=== PATIENT | female | born 1945 | race Caucasian/White ===

== ENCOUNTER 2020-03-23 11:58 | Outpatient (REF) | payer OTHER, SELFPAY ==
[2020-03-23 13:39] LABS: MANUAL DIFF FLAG NO
[2020-03-23 13:43] LABS: Basophils Absolute Auto 0.1 X10*3/uL (0.0-0.2); Basophils Percent Auto 0.7 % (0-2); Eosinophils Absolute Auto 0.2 X10*3/uL (0.0-0.4); Eosinophils Percent Auto 3.4 % (0-4); Hematocrit 44.1 % (37-47); Hemoglobin 15.3 g/dl (12.0-16.0); Imm Gran Abs Auto 0.02 X10*3/uL (0.00-0.03); Imm Gran Pct Auto 0.3 % (0.0-0.4); Lymphocytes Percent Auto 28.1 % (20-40); Mean Corpuscular HGB Conc 34.7 g/dl (31.0-35.0); Mean Corpuscular Volume 92.3 fL (80-98); Mean Platelet Volume 10.2 fL (9.4-12.3); Monocytes Absolute Auto 0.6 X10*3/uL (0.1-1.2); Monocytes Percent Auto 8.7 % (2-11); Neutrophils Absolute Auto 4.1 X10*3/uL (2.0-8.3); Neutrophils Percent Auto 58.8 % (45-73); Platelet Count 259 X10*3/uL (160-400); Red Blood Count 4.78 X10*6/uL (4.20-5.50); Red Cell Distribution Width 12.4 % (11.0-16.0)
[2020-03-23 14:07] LABS: Alanine Aminotransferase 13 U/L (0-31); Albumin Level 4.4 g/dL (3.5-5.0); Alkaline Phosphatase 92 U/L (39-117); Anion Gap 17 (12-20); Aspartate Amino Transferase 38 U/L (5-31); Bilirubin Total 1.1 mg/dL (0.0-1.0); Blood Urea Nitrogen 20 mg/dL (9-16); Calcium 9.4 mg/dL (8.4-10.2); Carbon Dioxide 27 mmol/L (22-29); Chloride 103 mmol/L (96-108); Cholesterol 158 mg/dL; Estimated Glomerular Filt Rate 42; Glucose Fasting 116 mg/dL (60-99); HDL Cholesterol 41 mg/dL; LDL Cholesterol Calculated 77 mg/dl; Sodium 143 mmol/L (135-145); Total Protein 7.6 g/dL (6.5-8.0); Triglycerides 201 mg/dL
[2020-03-23 15:10] LABS: Estimated Average Glucose 180 mg/dL; Hemoglobin A1c % 7.9 %
== END 2020-03-23 11:59 | disposition home or self-care (01) ==
LOC: HO.10HDL 11:58
PROVIDERS: Visit Provider Internal Medicine
DX: E11.9 Type 2 diabetes mellitus without complications (principal)
CPT/HCPCS: 36415; 80053; 80061; 83036; 85025

== ENCOUNTER 2020-10-30 17:18 | Outpatient (REF) | payer OTHER, SELFPAY ==
[2020-10-30 18:03] LABS: MANUAL DIFF FLAG NO
[2020-10-30 18:26] LABS: Blood Urea Nitrogen 26 mg/dL (9-16); Estimated Glomerular Filt Rate 38
[2020-10-30 18:29] LABS: Uric Acid 9.6 mg/dL (2.4-5.7)
[2020-10-30 18:30] LABS: Basophils Absolute Auto 0.1 X10*3/uL (0.0-0.2); Basophils Percent Auto 0.5 % (0-2); Eosinophils Absolute Auto 0.2 X10*3/uL (0.0-0.4); Eosinophils Percent Auto 2.6 % (0-4); Hematocrit 44.4 % (37-47); Hemoglobin 15.4 g/dl (12.0-16.0); Imm Gran Abs Auto 0.04 X10*3/uL (0.00-0.03); Imm Gran Pct Auto 0.4 % (0.0-0.4); Lymphocytes Absolute Auto 2.2 X10*3/uL (1.2-4.9); Mean Corpuscular HGB Conc 34.7 g/dl (31.0-35.0); Mean Corpuscular Hemoglobin 32.1 pg (27.0-33.0); Mean Corpuscular Volume 92.5 fL (80-98); Mean Platelet Volume 11.4 fL (9.4-12.3); Monocytes Absolute Auto 0.7 X10*3/uL (0.1-1.2); Monocytes Percent Auto 7.4 % (2-11); Neutrophils Percent Auto 65.1 % (45-73); Platelet Count 185 X10*3/uL (160-400); Red Cell Distribution Width 12.6 % (11.0-16.0); White Blood Count 9.2 X10*3/uL (4.8-10.8)
[2020-10-30 18:59] LABS: Erythrocyte Sedimentation Rate 18 MM/HR (0-20)
== END 2020-10-30 17:19 | disposition home or self-care (01) ==
LOC: HO.LAB 17:18
PROVIDERS: PCP Internal Medicine; Visit Provider Podiatrist
DX: M79.672 Pain in left foot (principal); M10.072 Idiopathic gout, left ankle and foot; L03.032 Cellulitis of left toe; R60.0 Localized edema
CPT/HCPCS: 36415; 82565; 84520; 84550; 85025; 85652

== ENCOUNTER 2021-01-28 11:09 | Outpatient (REF) | payer OTHER, SELFPAY ==
[2021-01-28 14:04] LABS: Alanine Aminotransferase 29 U/L (0-31); Albumin Level 4.4 g/dL (3.5-5.0); Alkaline Phosphatase 103 U/L (39-117); Anion Gap 14 (12-20); Aspartate Amino Transferase 43 U/L (5-31); Bilirubin Direct 0.4 mg/dL (0.0-0.5); Bilirubin Total 1.1 mg/dL (0.0-1.0); Blood Urea Nitrogen 13 mg/dL (9-16); Calcium 10.1 mg/dL (8.4-10.2); Carbon Dioxide 26 mmol/L (22-29); Chloride 105 mmol/L (96-108); Cholesterol 195 mg/dL; Estimated Glomerular Filt Rate 44; Glucose Random 164 mg/dL (60-115); HDL Cholesterol 44 mg/dL; LDL Cholesterol Calculated 112 mg/dl; Potassium 4.2 mmol/L (3.3-5.1); Sodium 141 mmol/L (135-145); Total Protein 7.8 g/dL (6.5-8.0); Triglycerides 196 mg/dL
[2021-01-28 14:25] LABS: Thyroid Stimulating Hormone 1.76 uIU/mL (0.32-4.0)
== END 2021-01-28 11:10 | disposition home or self-care (01) ==
LOC: HO.10HDL 11:09
PROVIDERS: Visit Provider Internal Medicine
DX: E11.9 Type 2 diabetes mellitus without complications (principal)
CPT/HCPCS: 36415; 80048; 80061; 80076; 84443

== ENCOUNTER 2021-04-15 13:04 | Outpatient (REF) | payer OTHER, SELFPAY ==
--- NOTE | ~2021-04-15 | MM_ITS ---
EXAMINATION: MM SCREENING DIGITAL BREAST TOMOSYNTHESIS, BILATERAL CLINICAL INFORMATION: Screening. Asymptomatic. The lifetime risk of breast cancer based on the Tyrer-Cuzick Model is 3.6%. COMPARISON: Mammography: May 28, 2019 and studies dating back to August 12, 2013 TECHNIQUE: Digital breast tomosynthesis is performed in both the craniocaudal and mediolateral oblique views along with computer-aided detection (CAD). Synthesized 2D images are generated from the tomosynthesis. Additional right exaggerated craniocaudal view performed. FINDINGS: There are scattered areas of fibroglandular density (ACR BI-RADS breast composition Category b). There are no significant masses, abnormal calcifications, or other abnormalities. MM/MM tomosynthesis screening BI IMPRESSION: There are no significant changes from prior study. ASSESSMENT: BI-RADS 1: Negative RECOMMENDATION: Routine annual mammography screening. This patient's information was entered into a reminder system with a target due date for their next mammogram.
== END 2021-04-15 13:05 | disposition home or self-care (01) ==
LOC: HO.MAMMO 13:04
PROVIDERS: Visit Provider Internal Medicine
DX: Z12.31 Encounter for screening mammogram for malignant neoplasm of breast (principal)
CPT/HCPCS: 77063; 77067

== ENCOUNTER 2021-06-03 09:47 | Outpatient (REF) | payer OTHER, SELFPAY ==
[2021-06-03 11:06] LABS: Hematocrit 49.2 % (37.0-47.0); Hemoglobin 16.8 g/dl (12.0-16.0); Mean Corpuscular HGB Conc 34.1 g/dl (31.0-35.0); Mean Corpuscular Hemoglobin 30.9 pg (27.0-33.0); Mean Corpuscular Volume 90.6 fL (80.0-98.0); Mean Platelet Volume 10.3 fL (9.4-12.3); Platelet Count 217 X10*3/uL (160-400); Red Blood Count 5.43 X10*6/uL (4.20-5.50); Red Cell Distribution Width 12.5 % (11.0-16.0); White Blood Count 6.3 X10*3/uL (4.8-10.8)
[2021-06-03 11:35] LABS: Appearance Urine HAZY; Color Urine YELLOW; Glucose Urine UA NEG (NEG); Leukocyte Esterase Urine NEG (NEG); Nitrite Urine NEG (NEG); PH 5.5 (5.0-8.0); Specific Gravity - Urine >= 1.030 (1.005-1.025); Urine Blood NEG (NEG); Urine Ketones NEG (NEG); Urine Protein NEG (NEG-TRACE)
[2021-06-03 11:41] LABS: Alanine Aminotransferase 54 U/L (0-31); Albumin Level 4.4 g/dL (3.5-5.0); Alkaline Phosphatase 99 U/L (39-117); Anion Gap 15 (12-20); Aspartate Amino Transferase 30 U/L (5-31); Bilirubin Direct 0.4 mg/dL (0.0-0.5); Bilirubin Total 1.5 mg/dL (0.0-1.0); Blood Urea Nitrogen 19 mg/dL (9-16); Calcium 10.1 mg/dL (8.4-10.2); Carbon Dioxide 26 mmol/L (22-29); Chloride 102 mmol/L (96-108); Cholesterol 205 mg/dL; Estimated Glomerular Filt Rate 43; Glucose Random 164 mg/dL (60-115); HDL Cholesterol 44 mg/dL; LDL Cholesterol Calculated 120 mg/dl; Potassium 4.1 mmol/L (3.3-5.1); Sodium 139 mmol/L (135-145); Total Protein 7.8 g/dL (6.5-8.0); Triglycerides 207 mg/dL
[2021-06-03 11:53] LABS: Thyroid Stimulating Hormone 2.43 uIU/mL (0.32-4.0)
[2021-06-03 12:08] LABS: Creatinine Urine 153.61 mg/dL; Microalbum/Creatinine Ratio Ur 7.8 ug/mg cr
== END 2021-06-03 09:48 | disposition home or self-care (01) ==
LOC: HO.10HDL 09:47
PROVIDERS: Visit Provider Internal Medicine
DX: G20 Parkinson's disease (principal); I10 Essential (primary) hypertension
CPT/HCPCS: 36415; 80048; 80061; 80076; 81003; 82043; 84443; 85027

== ENCOUNTER 2021-06-22 11:40 | Inpatient (IN) | payer OTHER, SELFPAY ==
[2021-06-22] VITALS (8 sets, daily range): BP systolic 139–163; BP diastolic 84–111; PULSE 74–104; RESP 17–18; TEMP 36.4–36.7; O2SAT 96–100; BMI 26.5
--- NOTE | ~2021-06-22 | XR_ITS ---
EXAMINATION: XR CHEST CLINICAL INFORMATION: Lightheaded. COMPARISON: None TECHNIQUE: Frontal portable view of the chest was obtained. 4:23 PM FINDINGS: No significant abnormality is noted involving the heart, lungs, mediastinum, bony thorax or soft tissues. XR/XR chest 1V IMPRESSION: Unremarkable examination.
--- NOTE | ~2021-06-22 | NM_ITS ---
Myocardial perfusion study Indication: Elevated troponins to evaluate for myocardial ischemia Technique: The patient was brought in for a Lexiscan perfusion study on 06/24/2021. Patient performed low-level exercise and was injected 0.4 mg of Lexiscan intravenously. Within a minute of injection, 25 mCi of sestamibi was given intravenously. Images were obtained using the SPECT gamma camera interlaced with the gating device. Images were obtained in supine position. Resting perfusion study was performed on 06/23/2021. Patient was administered 25 mCi of sestamibi intravenously at rest. Images were then obtained in supine position. Images obtained with and without CT attenuation. Total DLP 124 mGy-cm. Images were processed with the software and compared side to side in short axis, horizontal long axis and vertical long axis views. Findings: The stress perfusion study showed non attenuated images show normal uptake of radiotracer in all segments of LV myocardium. Attenuation corrected images show mildly reduced uptake in the apex of the LV myocardium. The gated study shows mildly reduced LV systolic function with calculated LVEF of 46%. LV cavity is normal size. The gated study shows normal systolic wall thickening and contraction of segments. Resting study shows non attenuated images show mildly reduced uptake in the apex of the LV myocardium. Attenuation corrected images show moderately reduced uptake in the apex of the LV myocardium. Gating at rest reveals normal systolic wall motion with ejection fraction at 51%. The findings are consistent with no reversible defect suggestive of ischemia.. NM/NM samia perf SPECT rest & str Impression: 1. Myocardial perfusion imaging study shows likely normal myocardial perfusion 2. Gated LVEF is 46% with stress and 51% with rest 3. Transient ischemic dilatation not present EKG is nondiagnostic for ischemia
[2021-06-22 12:13] LABS: MANUAL DIFF FLAG NO
[2021-06-22 12:14] LABS: Basophils Absolute Auto 0.1 X10*3/uL (0.0-0.2); Basophils Percent Auto 0.7 % (0-2); Eosinophils Absolute Auto 0.2 X10*3/uL (0.0-0.4); Eosinophils Percent Auto 2.8 % (0-4); Hematocrit 50.1 % (37.0-47.0); Hemoglobin 17.3 g/dl (12.0-16.0); Imm Gran Abs Auto 0.03 X10*3/uL (0.00-0.03); Imm Gran Pct Auto 0.4 % (0.0-0.4); Lymphocytes Absolute Auto 1.8 X10*3/uL (1.2-4.9); Lymphocytes Percent Auto 25.5 % (20-40); Mean Corpuscular HGB Conc 34.5 g/dl (31.0-35.0); Mean Corpuscular Hemoglobin 30.7 pg (27.0-33.0); Mean Corpuscular Volume 88.8 fL (80.0-98.0); Mean Platelet Volume 9.8 fL (9.4-12.3); Monocytes Absolute Auto 0.6 X10*3/uL (0.1-1.2); Monocytes Percent Auto 8.7 % (2-11); Neutrophils Absolute Auto 4.5 x10*3/uL (2.0-8.3); Neutrophils Percent Auto 61.9 % (45-73); Platelet Count 241 X10*3/uL (160-400); Red Blood Count 5.64 X10*6/uL (4.20-5.50); Red Cell Distribution Width 12.4 % (11.0-16.0); White Blood Count 7.2 X10*3/uL (4.8-10.8)
[2021-06-22 12:34] LABS: Anion Gap 16 (12-20); Blood Urea Nitrogen 25 mg/dL (9-16); Calcium 10.5 mg/dL (8.4-10.2); Carbon Dioxide 21 mmol/L (22-29); Chloride 104 mmol/L (96-108); Creatinine Clr Calc Pharmacy 33.6; Estimated Glomerular Filt Rate 38; Glucose Random 286 mg/dL (60-115); Potassium 4.3 mmol/L (3.3-5.1); Sodium 137 mmol/L (135-145)
--- NOTE | 2021-06-22 14:22 | ECG_ITS ---
Test Reason : WEAKNESS Blood Pressure : / mmHG Vent. Rate : 092 BPM Atrial Rate : 092 BPM P-R Int : 182 ms QRS Dur : 076 ms QT Int : 360 ms P-R-T Axes : 070 -18 028 degrees QTc Int : 445 ms Baseline artifact Normal sinus rhythm Minimal voltage criteria for LVH, may be normal variant ( R in aVL ) Borderline ECG When compared with ECG of 02-AUG-2001 16:39, Vent. rate has increased BY 35 BPM Referred By: Margarette Ling Electronically Signed By:ODALIS BRIAN
--- NOTE | 2021-06-22 14:31 | ED_ITS ---
HPI - Weakness General Chief complaint: Weakness <JENNIFER Allen Last Filed: 06/22/21 18:04> Stated complaint: dizziness <JENNIFER Allen Last Filed: 06/22/21 18:04> Time Seen by Provider: 06/22/21 14:13 <JENNIFER Allen Last Filed: 06/22/21 18:04> Source: patient <JENNIFER Allen Last Filed: 06/22/21 18:04> Mode of arrival: ambulatory <JENNIFER Allen Last Filed: 06/22/21 18:04> History of Present Illness HPI Narrative: 76-year-old female with a past medical history of DM, HTN, HLD, Parkinson's, SVT, presenting to the ED from physical therapy complaining of lightheadedness and generalized weakness this morning, resolved at present. Reports symptoms were brief. States at physical therapy heart rate was in the 200s. Denies CP, SOB, headache, vision changes, nausea, vomiting, abdominal pain, decreased p.o. intake, recent illness, cough <JENNIFER Allen Last Filed: 06/22/21 18:04> MD Complaint: generalized weakness <JENNIFER Allen Last Filed: 06/22/21 18:04> Onset (ago): minute(s) <JENNIFER Allen Last Filed: 06/22/21 18:04> Duration: improved <JENNIFER Allen Last Filed: 06/22/21 18:04> Related Data Home medications: Home Medications Medication Instructions Recorded Confirmed aspirin 81 mg tablet,delayed 81 mg PO DAILY 01/28/21 release (Adult Low Dose Aspirin) atenolol 25 mg tablet 25 mg PO DAILY 01/28/21 carbidopa 25 mg-levodopa 100 mg 1 tab PO QID tab 01/28/21 tablet Previous Rx's Medication Instructions Recorded hydrochlorothiazide 12.5 mg tablet 12.5 mg PO DAILY #90 tab 11/19/20 atorvastatin 20 mg tablet 20 mg PO DAILY #90 tab 11/26/20 lisinopril 10 mg tablet 10 mg PO DAILY #90 tab 12/25/20 metformin 500 mg tablet 500 mg PO BID #180 tab 12/29/20 <JENNIFER Allen Last Filed: 06/22/21 18:04> Allergies/Adverse reactions: Allergies Allergy/AdvReac Type Severity Reaction Status Date / Time No Known Allergies Allergy Verified 06/03/21 09:20 <JENNIFER Allen - Last Filed: 06/22/21 18:04> Review of Systems Review of Systems: Constitutional: No Fever, No Chills, No Fatigue, No Malaise ENT/Mouth: No Ear Pain, No sore throat, No Rhinorrhea, No Swallowing Difficulty Eyes: No Eye Pain, No Redness, No Vision Changes Cardiovascular: No Chest Pain, No SOB, No Edema, No Palpitations Respiratory: No Cough, No Sputum, No Dyspnea Gastrointestinal: No Nausea, No Vomiting, No Diarrhea, No Constipation, No Abdominal pain Genitourinary: No Dysuria, No Urinary Frequency, No Hematuria, No Flank Pain, No Urinary Flow Changes Musculoskeletal: No joint pain, No Myalgias, No Joint Swelling Skin: No Skin Lesions, No rash Neuro: + Weakness, No Numbness, No Paresthesias, No Loss of Consciousness, No Dizziness, +lightheaded, No Headache <JENNIFER Allen - Last Filed: 06/22/21 18:04> Yes all other systems are reviewed and are negative <JENNIFER Allen Last Filed: 06/22/21 18:04> Neurologic: Denies Abnormal speech present <JENNIFER Allen - Last Filed: 06/22/21 18:04> FOR[facility]LY [facility] Past Medical History Attestation statement: The following information was validated with the patient. <JENNIFER Allen - Last Filed: 06/22/21 18:04> Medical History: Medical History Diabetes mellitus Essential hypertension Familial hypercholesterolemia Parkinsonism Supraventricular tachycardia <JENNIFER Allen Last Filed: 06/22/21 18:04> Surgical History: Surgical History History of appendectomy History of hemorrhoidectomy History of tumor <JENNIFER Allen Last Filed: 06/22/21 18:04> Family History Family History: Family History Father No problems noted. Mother No problems noted. <JENNIFER Allen - Last Filed: 06/22/21 18:04> Social History Social History: Social History Housing: House Alcohol intake: never Patient Tobacco Use Status: Never used Tobacco e-Cigarette/Vaping Use: Never Used Second Hand Smoke Exposure: No Advance Directives: No Advance Directives Information Provided: No service: No Current occupational status: retired Cognitive needs: No Hearing needs: No Vision needs: Yes (glasses) <JENNIFER Allen - Last Filed: 06/22/21 18:04> Physical Exam Vital Signs: Vital Signs: Last Vital Signs Temp 98.0 F 06/22/21 18:12 Pulse 83 06/22/21 18:12 Resp 18 06/22/21 18:12 BP 139/102 H 06/22/21 18:12 Pulse Ox 96 06/22/21 18:12 BMI result Body Mass Index 26.5 <JENNIFER Allen - Last Filed: 06/22/21 18:04> Vital Signs: Last Vital Signs Temp 98.0 F 06/22/21 18:12 Pulse 83 06/22/21 18:12 Resp 18 06/22/21 18:12 BP 139/102 H 06/22/21 18:12 Pulse Ox 96 06/22/21 18:12 BMI result Body Mass Index 26.5 <JENNIFER Garsia - Last Filed: 06/22/21 19:39> Const: General: cooperative and healthy appearing <JENNIFER Allen - Last Filed: 06/22/21 18:04> Orientation/consciousness: patient oriented x3 <JENNIFER Allen - Last Filed: 06/22/21 18:04> Limitations: no limitations <JENNIFER Allen - Last Filed: 06/22/21 18:04> HENMT: Head: Yes normal to inspection and Yes atraumatic <JENNIFER Allen - Last Filed: 06/22/21 18:04> Ears: hearing grossly normal bilaterally <JENNIFER Allen - Last Filed: 06/22/21 18:04> General nose exam: Normal external nose present <Margarette Ling PA - Last Filed: 06/22/21 18:04> Face and sinus: Yes normal facial exam <Margarette Ling PA - Last Filed: 06/22/21 18:04> Throat: Yes posterior oropharynx normal and Yes uvula midline <Margarette Ling PA - Last Filed: 06/22/21 18:04> Eyes: General: appearance normal, both eyes and all related structures <Margarette Ling PA - Last Filed: 06/22/21 18:04> Pupils: Equal, round and reactive pupils present <Margarette Ling PA - Last Filed: 06/22/21 18:04> EOM: EOMs intact bilaterally <Margarette Ling PA - Last Filed: 06/22/21 18:04> Neck: Neck: Yes normal visual inspection and Yes no meningeal signs <Margarette Lign PA - Last Filed: 06/22/21 18:04> Resp: Effort & Inspection: normal respiratory effort and no respiratory distress <Margarette Ling PA - Last Filed: 06/22/21 18:04> Auscultation: clear to auscultation bilaterally <Margarette Ling PA - Last Filed: 06/22/21 18:04> Cardio: Rate: regular rate <Margarette Ling PA - Last Filed: 06/22/21 18:04> Heart sounds: S1 normal heart sound present and S2 normal heart sound present <Margarette Ling PA - Last Filed: 06/22/21 18:04> GI: Inspection: Yes normal to inspection <Margarette Ling PA - Last Filed: 06/22/21 18:04> Palpation (GI): Soft to palpation, nontender, no guarding and not rigid <Margarette Ling PA - Last Filed: 06/22/21 18:04> : General: Yes no CVA tenderness <Margarette Ling PA - Last Filed: 06/22/21 18:04> Back/Spine/Pelvis: Back: no CVA tenderness <Margarette Ling PA - Last Filed: 06/22/21 18:04> Skin: Rashes: no rashes <Margarette Ling PA - Last Filed: 06/22/21 18:04> Wounds: no wounds <Margarette Ling PA - Last Filed: 06/22/21 18:04> Neuro: General: patient oriented x3, gait normal, tone normal, moves all extremities, no meningeal signs, no focal motor deficits and CN's II-XI intact bilaterally <Margarette Ling PA - Last Filed: 06/22/21 18:04> Cranial nerves: Yes Equal, round and reactive pupils present <Margarette Ling PA - Last Filed: 06/22/21 18:04> Cognition (Neuro): normal cognition <Margarette Ling PA - Last Filed: 06/22/21 18:04> Speech: No Abnormal speech present <Margarette Ling PA - Last Filed: 06/22/21 18:04> Gait exam (Neuro): Normal gait present <Margarette Ling PA - Last Filed: 06/22/21 18:04> Motor exam (neuro): 5/5 motor strength present throughout, Pronator motor function not present and Tremors during motor activity present <Margarette Ling PA - Last Filed: 06/22/21 18:04> Coordination: [id number] test normal <Margarette Ling PA - Last Filed: 06/22/21 18:04> Romberg Test: Negative <Margarette Ling PA - Last Filed: 06/22/21 18:04> Extrem: General: Yes normal to inspection, Yes no pedal edema and Yes no calf tenderness <Margarette Ling PA - Last Filed: 06/22/21 18:04> Course Course Course Narrative: -1544--no leukocytosis. BUN acute on chronically elevated to 25. Initial troponin 5.1 > will obtain 3 hour repeat. -lipase mildly elevated to 187. UA with 500 glucose/not infected -orthostatic vital signs negative -1634--troponin increased to 18.5 > will consult Cardiology -case discussed with Cardiology Dr. Carpio, will repeat 3rd troponin, if continues to rise will admit, if plateaus will discharge home with Cardiology follow-up -1800--ED care transferred to JENNIFER Reynolds pending repeat troponin. Dispo per results <JENNIFER Allen Last Filed: 06/22/21 18:04> -1544--no leukocytosis. BUN acute on chronically elevated to 25. Initial troponin 5.1 > will obtain 3 hour repeat. -lipase mildly elevated to 187. UA with 500 glucose/not infected -orthostatic vital signs negative -1634--troponin increased to 18.5 > will consult Cardiology -case discussed with Cardiology Dr. Carpio, will repeat 3rd troponin, if continues to rise will admit, if plateaus will discharge home with Cardiology follow-up -1800--ED care transferred to JENNIFER Reynolds pending repeat troponin. Dispo per results -1938 Patient's troponin continues to elevate. Spoke to Dr. Carpio, the shuttle inspector, who recommended the patient be brought in for observation. He stated that he did not want a heparin drip started until after he sees her in the morning. Spoke to hospitalist Dr. Bergman who agreed to admission. <JENNIFER Garsia - Last Filed: 06/22/21 19:39> MDM - Weakness MDM Narrative Medical decision making narrative: 76-year-old female with a past medical history of DM, HTN, HLD, Parkinson's, SVT, presenting to the ED from physical therapy complaining of lightheadedness and generalized weakness this morning, resolved at present. On exam hypertensive, tachycardic,, NAD, no focal neuro deficits. Concern for metabolic/infectious etiologies vs ?Episodic SVT. Low concern for ACS/PE/CVA. Low concern for hypertensive urgency/emergency Plan: EKG, Labs, UA, orthostatics, IVF, Reassess <JENNIFER Allen - Last Filed: 06/22/21 18:04> Differential Diagnosis Differential diagnosis: Likely UTI and dehydration <JENNIFER Allen Last Filed: 06/22/21 18:04> Medical Records Attestation: I reviewed the patient's medical records. <JENNIFER Allen Last Filed: 06/22/21 18:04> Lab Data Attestation: I reviewed the patient's lab results. <JENNIFER Allen Last Filed: 06/22/21 18:04> Result diagrams: : 06/22/21 12:07 06/22/21 12:07 <JENNIFER Allen - Last Filed: 06/22/21 18:04> Labs: Lab Results 06/22/21 06/22/21 06/22/21 Range/Units 12:07 12:07 12:07 WBC 7.2 (4.8-10.8) X10*3/uL RBC 5.64 H (4.20-5.50) X10*6/uL Hgb 17.3 H (12.0-16.0) g/dl Hct 50.1 H (37.0-47.0) % MCV 88.8 (80.0-98.0) fL MCH 30.7 (27.0-33.0) pg MCHC 34.5 (31.0-35.0) g/dl RDW 12.4 (11.0-16.0) % Plt Count 241 (160-400) X10*3/uL MPV 9.8 (9.4-12.3) fL Immature Gran % (Auto) 0.4 (0.0-0.4) % Neut % (Auto) 61.9 (45-73) % Lymph % (Auto) 25.5 (20-40) % [place] % (Auto) 8.7 (2-11) % Eos % (Auto) 2.8 (0-4) % Baso % (Auto) 0.7 (0-2) % Lymph # (Auto) 1.8 (1.2-4.9) X10*3/uL [place] # (Auto) 0.6 (0.1-1.2) X10*3/uL Eos # (Auto) 0.2 (0.0-0.4) X10*3/uL Baso # (Auto) 0.1 (0.0-0.2) X10*3/uL Abs Immat Gran (auto) 0.03 (0.00-0.03) X10*3/uL Absolute Neuts (auto) 4.5 (2.0-8.3) x10*3/uL Absolute Nucleated RBC 0.000 (0.0-0.012) X10*3/uL Nucleated RBC % (auto) 0.0 (0.0-0.2) /100WBC Sodium 137 (135-145) mmol/L Potassium 4.3 (3.3-5.1) mmol/L Chloride 104 (96-108) mmol/L Carbon Dioxide 21 L (22-29) mmol/L Anion Gap 16 (12-20) BUN 25 H (9-16) mg/dL Creatinine 1.36 (0.5-1.4) mg/dL Estim Creat Clear Calc 33.6 Estimated GFR 38 Random Glucose 286 H (60-115) mg/dL Calcium 10.5 H (8.4-10.2) mg/dL Magnesium 1.8 (1.6-2.6) mg/dL Total Bilirubin 0.8 (0.0-1.0) mg/dL Direct Bilirubin 0.3 (0.0-0.5) mg/dL AST 24 (5-31) U/L ALT 22 (0-31) U/L Alkaline Phosphatase 120 H D (39-117) U/L Troponin I High Sens 5.1 (<3.5-17.0) ng/L Total Protein 7.9 (6.5-8.0) g/dL Albumin 4.4 (3.5-5.0) g/dL Lipase 187 H (8-78) U/L Urine Color Urine Appearance Urine pH (5.0-8.0) Ur Specific [place] (1.005-1.025) Urine Protein (NEG-TRACE) MG/DL Urine Glucose (UA) (NEG) MG/DL Urine Ketones (NEG) MG/DL Urine Blood (NEG) Urine Nitrite (NEG) Ur Leukocyte Esterase (NEG) COVID-19 (OBDULIO) (Negative) COVID-19 Clin Com 06/22/21 06/22/21 06/22/21 Range/Units 14:42 14:42 15:58 WBC (4.8-10.8) X10*3/uL RBC (4.20-5.50) X10*6/uL Hgb (12.0-16.0) g/dl Hct (37.0-47.0) % MCV (80.0-98.0) fL MCH (27.0-33.0) pg MCHC (31.0-35.0) g/dl RDW (11.0-16.0) % Plt Count (160-400) X10*3/uL MPV (9.4-12.3) fL Immature Gran % (Auto) (0.0-0.4) % Neut % (Auto) (45-73) % Lymph % (Auto) (20-40) % [place] % (Auto) (2-11) % Eos % (Auto) (0-4) % Baso % (Auto) (0-2) % Lymph # (Auto) (1.2-4.9) X10*3/uL [place] # (Auto) (0.1-1.2) X10*3/uL Eos # (Auto) (0.0-0.4) X10*3/uL Baso # (Auto) (0.0-0.2) X10*3/uL Abs Immat Gran (auto) (0.00-0.03) X10*3/uL Absolute Neuts (auto) (2.0-8.3) x10*3/uL Absolute Nucleated RBC (0.0-0.012) X10*3/uL Nucleated RBC % (auto) (0.0-0.2) /100WBC Sodium (135-145) mmol/L Potassium (3.3-5.1) mmol/L Chloride (96-108) mmol/L Carbon Dioxide (22-29) mmol/L Anion Gap (12-20) BUN (9-16) mg/dL Creatinine (0.5-1.4) mg/dL Estim Creat Clear Calc Estimated GFR Random Glucose (60-115) mg/dL Calcium (8.4-10.2) mg/dL Magnesium (1.6-2.6) mg/dL Total Bilirubin (0.0-1.0) mg/dL Direct Bilirubin (0.0-0.5) mg/dL AST (5-31) U/L ALT (0-31) U/L Alkaline Phosphatase (39-117) U/L Troponin I High Sens 18.5 H D (<3.5-17.0) ng/L Total Protein (6.5-8.0) g/dL Albumin (3.5-5.0) g/dL Lipase (8-78) U/L Urine Color YELLOW Urine Appearance CLEAR Urine pH 5.5 (5.0-8.0) Ur Specific [place] 1.025 (1.005-1.025) Urine Protein NEG (NEG-TRACE) MG/DL Urine Glucose (UA) 500 H (NEG) MG/DL Urine Ketones NEG (NEG) MG/DL Urine Blood NEG (NEG) Urine Nitrite NEG (NEG) Ur Leukocyte Esterase NEG (NEG) COVID-19 (OBDULIO) Negative (Negative) COVID-19 Clin Com See Note 06/22/21 Range/Units 18:08 WBC (4.8-10.8) X10*3/uL RBC (4.20-5.50) X10*6/uL Hgb (12.0-16.0) g/dl Hct (37.0-47.0) % MCV (80.0-98.0) fL MCH (27.0-33.0) pg MCHC (31.0-35.0) g/dl RDW (11.0-16.0) % Plt Count (160-400) X10*3/uL MPV (9.4-12.3) fL Immature Gran % (Auto) (0.0-0.4) % Neut % (Auto) (45-73) % Lymph % (Auto) (20-40) % [place] % (Auto) (2-11) % Eos % (Auto) (0-4) % Baso % (Auto) (0-2) % Lymph # (Auto) (1.2-4.9) X10*3/uL [place] # (Auto) (0.1-1.2) X10*3/uL Eos # (Auto) (0.0-0.4) X10*3/uL Baso # (Auto) (0.0-0.2) X10*3/uL Abs Immat Gran (auto) (0.00-0.03) X10*3/uL Absolute Neuts (auto) (2.0-8.3) x10*3/uL Absolute Nucleated RBC (0.0-0.012) X10*3/uL Nucleated RBC % (auto) (0.0-0.2) /100WBC Sodium (135-145) mmol/L Potassium (3.3-5.1) mmol/L Chloride (96-108) mmol/L Carbon Dioxide (22-29) mmol/L Anion Gap (12-20) BUN (9-16) mg/dL Creatinine (0.5-1.4) mg/dL Estim Creat Clear Calc Estimated GFR Random Glucose (60-115) mg/dL Calcium (8.4-10.2) mg/dL Magnesium (1.6-2.6) mg/dL Total Bilirubin (0.0-1.0) mg/dL Direct Bilirubin (0.0-0.5) mg/dL AST (5-31) U/L ALT (0-31) U/L Alkaline Phosphatase (39-117) U/L Troponin I High Sens 24.9 H (<3.5-17.0) ng/L Total Protein (6.5-8.0) g/dL Albumin (3.5-5.0) g/dL Lipase (8-78) U/L Urine Color Urine Appearance Urine pH (5.0-8.0) Ur Specific [place] (1.005-1.025) Urine Protein (NEG-TRACE) MG/DL Urine Glucose (UA) (NEG) MG/DL Urine Ketones (NEG) MG/DL Urine Blood (NEG) Urine Nitrite (NEG) Ur Leukocyte Esterase (NEG) COVID-19 (OBDULIO) (Negative) COVID-19 Clin Com <JENNIFER Allen - Last Filed: 06/22/21 18:04> Lab Results 06/22/21 06/22/21 06/22/21 Range/Units 12:07 12:07 12:07 WBC 7.2 (4.8-10.8) X10*3/uL RBC 5.64 H (4.20-5.50) X10*6/uL Hgb 17.3 H (12.0-16.0) g/dl Hct 50.1 H (37.0-47.0) % MCV 88.8 (80.0-98.0) fL MCH 30.7 (27.0-33.0) pg MCHC 34.5 (31.0-35.0) g/dl RDW 12.4 (11.0-16.0) % Plt Count 241 (160-400) X10*3/uL MPV 9.8 (9.4-12.3) fL Immature Gran % (Auto) 0.4 (0.0-0.4) % Neut % (Auto) 61.9 (45-73) % Lymph % (Auto) 25.5 (20-40) % [place] % (Auto) 8.7 (2-11) % Eos % (Auto) 2.8 (0-4) % Baso % (Auto) 0.7 (0-2) % Lymph # (Auto) 1.8 (1.2-4.9) X10*3/uL [place] # (Auto) 0.6 (0.1-1.2) X10*3/uL Eos # (Auto) 0.2 (0.0-0.4) X10*3/uL Baso # (Auto) 0.1 (0.0-0.2) X10*3/uL Abs Immat Gran (auto) 0.03 (0.00-0.03) X10*3/uL Absolute Neuts (auto) 4.5 (2.0-8.3) x10*3/uL Absolute Nucleated RBC 0.000 (0.0-0.012) X10*3/uL Nucleated RBC % (auto) 0.0 (0.0-0.2) /100WBC Sodium 137 (135-145) mmol/L Potassium 4.3 (3.3-5.1) mmol/L Chloride 104 (96-108) mmol/L Carbon Dioxide 21 L (22-29) mmol/L Anion Gap 16 (12-20) BUN 25 H (9-16) mg/dL Creatinine 1.36 (0.5-1.4) mg/dL Estim Creat Clear Calc 33.6 Estimated GFR 38 Random Glucose 286 H (60-115) mg/dL Calcium 10.5 H (8.4-10.2) mg/dL Magnesium 1.8 (1.6-2.6) mg/dL Total Bilirubin 0.8 (0.0-1.0) mg/dL Direct Bilirubin 0.3 (0.0-0.5) mg/dL AST 24 (5-31) U/L ALT 22 (0-31) U/L Alkaline Phosphatase 120 H D (39-117) U/L Troponin I High Sens 5.1 (<3.5-17.0) ng/L Total Protein 7.9 (6.5-8.0) g/dL Albumin 4.4 (3.5-5.0) g/dL Lipase 187 H (8-78) U/L Urine Color Urine Appearance Urine pH (5.0-8.0) Ur Specific [place] (1.005-1.025) Urine Protein (NEG-TRACE) MG/DL Urine Glucose (UA) (NEG) MG/DL Urine Ketones (NEG) MG/DL Urine Blood (NEG) Urine Nitrite (NEG) Ur Leukocyte Esterase (NEG) COVID-19 (OBDULIO) (Negative) COVID-19 Clin Com 06/22/21 06/22/21 06/22/21 Range/Units 14:42 14:42 15:58 WBC (4.8-10.8) X10*3/uL RBC (4.20-5.50) X10*6/uL Hgb (12.0-16.0) g/dl Hct (37.0-47.0) % MCV (80.0-98.0) fL MCH (27.0-33.0) pg MCHC (31.0-35.0) g/dl RDW (11.0-16.0) % Plt Count (160-400) X10*3/uL MPV (9.4-12.3) fL Immature Gran % (Auto) (0.0-0.4) % Neut % (Auto) (45-73) % Lymph % (Auto) (20-40) % [place] % (Auto) (2-11) % Eos % (Auto) (0-4) % Baso % (Auto) (0-2) % Lymph # (Auto) (1.2-4.9) X10*3/uL [place] # (Auto) (0.1-1.2) X10*3/uL Eos # (Auto) (0.0-0.4) X10*3/uL Baso # (Auto) (0.0-0.2) X10*3/uL Abs Immat Gran (auto) (0.00-0.03) X10*3/uL Absolute Neuts (auto) (2.0-8.3) x10*3/uL Absolute Nucleated RBC (0.0-0.012) X10*3/uL Nucleated RBC % (auto) (0.0-0.2) /100WBC Sodium (135-145) mmol/L Potassium (3.3-5.1) mmol/L Chloride (96-108) mmol/L Carbon Dioxide (22-29) mmol/L Anion Gap (12-20) BUN (9-16) mg/dL Creatinine (0.5-1.4) mg/dL Estim Creat Clear Calc Estimated GFR Random Glucose (60-115) mg/dL Calcium (8.4-10.2) mg/dL Magnesium (1.6-2.6) mg/dL Total Bilirubin (0.0-1.0) mg/dL Direct Bilirubin (0.0-0.5) mg/dL AST (5-31) U/L ALT (0-31) U/L Alkaline Phosphatase (39-117) U/L Troponin I High Sens 18.5 H D (<3.5-17.0) ng/L Total Protein (6.5-8.0) g/dL Albumin (3.5-5.0) g/dL Lipase (8-78) U/L Urine Color YELLOW Urine Appearance CLEAR Urine pH 5.5 (5.0-8.0) Ur Specific [place] 1.025 (1.005-1.025) Urine Protein NEG (NEG-TRACE) MG/DL Urine Glucose (UA) 500 H (NEG) MG/DL Urine Ketones NEG (NEG) MG/DL Urine Blood NEG (NEG) Urine Nitrite NEG (NEG) Ur Leukocyte Esterase NEG (NEG) COVID-19 (OBDULIO) Negative (Negative) COVID-19 Clin Com See Note 06/22/21 Range/Units 18:08 WBC (4.8-10.8) X10*3/uL RBC (4.20-5.50) X10*6/uL Hgb (12.0-16.0) g/dl Hct (37.0-47.0) % MCV (80.0-98.0) fL MCH (27.0-33.0) pg MCHC (31.0-35.0) g/dl RDW (11.0-16.0) % Plt Count (160-400) X10*3/uL MPV (9.4-12.3) fL Immature Gran % (Auto) (0.0-0.4) % Neut % (Auto) (45-73) % Lymph % (Auto) (20-40) % [place] % (Auto) (2-11) % Eos % (Auto) (0-4) % Baso % (Auto) (0-2) % Lymph # (Auto) (1.2-4.9) X10*3/uL [place] # (Auto) (0.1-1.2) X10*3/uL Eos # (Auto) (0.0-0.4) X10*3/uL Baso # (Auto) (0.0-0.2) X10*3/uL Abs Immat Gran (auto) (0.00-0.03) X10*3/uL Absolute Neuts (auto) (2.0-8.3) x10*3/uL Absolute Nucleated RBC (0.0-0.012) X10*3/uL Nucleated RBC % (auto) (0.0-0.2) /100WBC Sodium (135-145) mmol/L Potassium (3.3-5.1) mmol/L Chloride (96-108) mmol/L Carbon Dioxide (22-29) mmol/L Anion Gap (12-20) BUN (9-16) mg/dL Creatinine (0.5-1.4) mg/dL Estim Creat Clear Calc Estimated GFR Random Glucose (60-115) mg/dL Calcium (8.4-10.2) mg/dL Magnesium (1.6-2.6) mg/dL Total Bilirubin (0.0-1.0) mg/dL Direct Bilirubin (0.0-0.5) mg/dL AST (5-31) U/L ALT (0-31) U/L Alkaline Phosphatase (39-117) U/L Troponin I High Sens 24.9 H (<3.5-17.0) ng/L Total Protein (6.5-8.0) g/dL Albumin (3.5-5.0) g/dL Lipase (8-78) U/L Urine Color Urine Appearance Urine pH (5.0-8.0) Ur Specific [place] (1.005-1.025) Urine Protein (NEG-TRACE) MG/DL Urine Glucose (UA) (NEG) MG/DL Urine Ketones (NEG) MG/DL Urine Blood (NEG) Urine Nitrite (NEG) Ur Leukocyte Esterase (NEG) COVID-19 (OBDULIO) (Negative) COVID-19 Clin Com <JENNIFER Garsia - Last Filed: 06/22/21 19:39> Discharge Plan Discharge Clinical Impression: Episodic lightheadedness, Elevated troponin level <JENNIFER Allen - Last Filed: 06/22/21 18:04> Patient Disposition: Admitted As Inpatient <JENNIFER Allen - Last Filed: 06/22/21 18:04> Instructions: Lightheadedness (ED) <JENNIFER Allen - Last Filed: 06/22/21 18:04> Prescriptions: No Action hydrochlorothiazide 12.5 mg tablet 12.5 mg PO DAILY Qty: 90 1RF atorvastatin 20 mg tablet 20 mg PO DAILY Qty: 90 1RF lisinopril 10 mg tablet 10 mg PO DAILY Qty: 90 1RF metformin 500 mg tablet 500 mg PO BID Qty: 180 2RF carbidopa-levodopa 25-100 mg tablet 1 tab PO QID 0RF aspirin [Adult Low Dose Aspirin] 81 mg tablet,delayed release (DR/EC) 81 mg PO DAILY 0RF atenolol 25 mg tablet 25 mg PO DAILY 0RF <JENNIFER Allen - Last Filed: 06/22/21 18:04> Referrals: Holden Carpio MD [Physician] - 2 days <JENNIFER Allen - Last Filed: 06/22/21 18:04> Print Language: Mongolian <JENNIFER Allen - Last Filed: 06/22/21 18:04>
[2021-06-22 14:50] LABS: Alanine Aminotransferase 22 U/L (0-31); Albumin Level 4.4 g/dL (3.5-5.0); Alkaline Phosphatase 120 U/L (39-117); Aspartate Amino Transferase 24 U/L (5-31); Bilirubin Direct 0.3 mg/dL (0.0-0.5); Bilirubin Total 0.8 mg/dL (0.0-1.0); Lipase 187 U/L (8-78); Magnesium 1.8 mg/dL (1.6-2.6); Total Protein 7.9 g/dL (6.5-8.0)
[2021-06-22 14:51] LABS: Appearance Urine CLEAR; Color Urine YELLOW; Glucose Urine UA 500 MG/DL (NEG); Leukocyte Esterase Urine NEG (NEG); Nitrite Urine NEG (NEG); PH 5.5 (5.0-8.0); Specific Gravity - Urine 1.025 (1.005-1.025); Urine Blood NEG (NEG); Urine Ketones NEG (NEG); Urine Protein NEG (NEG-TRACE)
[2021-06-22 14:57] LABS: Troponin-I High Sensitivity 5.1 ng/L (<3.5-17.0)
[2021-06-22] MEDS: 0.9 % Sodium Chloride 1,000 ML 999 ML IV (15:06)
[2021-06-22 16:26] LABS: Troponin-I High Sensitivity 18.5 ng/L (<3.5-17.0)
--- NOTE | 2021-06-22 17:25 | PC.NURSE ---
second bag of ivf not given, due to iv infiltrate, provier aware
[2021-06-22 18:32] LABS: COVID-19 Test Negative (Negative); IDNOW Serial# 16C4AD1C
[2021-06-22 18:41] LABS: Troponin-I High Sensitivity 24.9 ng/L (<3.5-17.0)
[2021-06-22 20:03] LABS: Glucose, Whole Blood 137 mg/dL (60-115)
--- NOTE | 2021-06-22 20:39 | PHA.MEDREC ---
Pharmacy Consult ? Medication Reconciliation Pharmacy has completed the medication reconciliation.Pt unsure if she still takes atenolol
[2021-06-22 22:39] LABS: Glucose, Whole Blood 225 mg/dL (60-115)
[2021-06-22] MEDS: Insulin Lispro 100 UNIT/ML 3 ML VIAL SUBCUT (22:49)
[2021-06-22] MEDS: Enoxaparin Sodium 40 MG/0.4 ML SYRINGE 70 MG SUBCUT (22:50)
--- NOTE | 2021-06-22 23:47 | PM.IMHP ---
History of Present Illness Date of Service: 06/22/21 Chief Complaint: Dizziness 76-year-old female with a past medical history of hypertension, familial hypercholesterolemia, diabetes, history of supraventricular tachycardia, parkinsonism; presented to the hospital today with a chief complaint of dizziness. Patient reported that he was starting for protein feels like the. The [facility] at home and had dizziness briefly; all she came to the hospital for physical therapy she mentioned that she was not feeling right and the followed by she felt dizzy and when sitting vitals he noted to have heart rate in low 100s; denied any palpitations. Denies any chest pain. Denies any fever chills cough. Mentions dizziness was with episode. Denies any dizziness at the time of my interview. Denies any urinary symptoms. Review of all other systems is negative except mentioned above ER course: Per ER team patient heart rate improved; further bleeding low 100s; exam benign; CT head showed no acute findings; troponins 5.1, 18.5, 24.9. EKG was nonischemic. Discussed with Dr. Carpio from cardiology who recommended Lovenox for possible NSTEMI. Also suggested echocardiogram. Admitted to the hospital for further management [facility] Medical History Diabetes mellitus Essential hypertension Familial hypercholesterolemia Parkinsonism Supraventricular tachycardia Family History Father No problems noted. Mother No problems noted. Surgical History History of appendectomy History of hemorrhoidectomy History of tumor Social History Housing: House Alcohol intake: never Patient Tobacco Use Status: Never used Tobacco e-Cigarette/Vaping Use: Never Used Second Hand Smoke Exposure: No Advance Directives: No Advance Directives Information Provided: No service: No Current occupational status: retired Cognitive needs: No Hearing needs: No Vision needs: Yes (glasses) Meds Allergies Allergy/AdvReac Type Severity Reaction Status Date / Time No Known Allergies Allergy Verified 06/03/21 09:20 Active Medications: Current Medications Dextrose (Dextrose 50 % 25 Gm/50 Ml Vial) 25 gm IVPUSH Q15M PRN; Protocol PRN Reason: per Hypoglycemia Standing Ord. Enoxaparin Sodium (Enoxaparin Sodium 40 Mg/0.4 Ml Syringe) 70 mg SUBCUT Q12H [facility] Last Admin: 06/22/21 22:50 Dose: 70 mg Documented by: Glucose (Glucose Gel 15 Gm Gel..Gram.) 15 gm PO Q15M PRN; Protocol PRN Reason: per Hypoglycemia Standing Ord. Insulin Human Lispro (Insulin Lispro 100 Unit/Ml 3 Ml Vial) 0 unit SUBCUT QIDACHS [facility]; Protocol Last Admin: 06/22/21 22:49 Dose: 4 unit Documented by: Melatonin (Melatonin 3 Mg Tablet) 6 mg PO BEDTIME PRN PRN Reason: Insomnia Senna (Sennosides 8.6 Mg Tablet) 17.2 mg PO BEDTIME PRN PRN Reason: Constipation Sodium Chloride (0.9 % Sodium Chloride Flush 3 Ml Syringe) 3 ml IVFLUSH QSHIFT [facility] Home Medications Medication Instructions Recorded Confirmed Last Taken Type aspirin 81 mg tablet,delayed 81 mg PO DAILY PRN 01/28/21 06/22/21 Unknown History release (Adult Low Dose Aspirin) atenolol 25 mg tablet 25 mg PO DAILY 01/28/21 06/22/21 Unknown History carbidopa 25 mg-levodopa 100 mg 1 tab PO QID tab 01/28/21 06/22/21 06/22/21 History tablet metformin 500 mg tablet 500 mg PO BIDWM 06/22/21 06/22/21 06/22/21 History Physical Exam Vital Signs and Narrative: Vital Signs: Last Vital Signs Temp 98.1 F 06/22/21 23:33 Pulse 77 06/22/21 23:33 Resp 18 06/22/21 23:33 BP 154/91 H 06/22/21 23:33 Pulse Ox 96 06/22/21 23:33 BMI result Body Mass Index 26.5 Gen: Appears be in no acute distress HEENT: NCAT, Moist mucosa. Pulmonary: Vesicular breath sounds, fair air entry CVS: Normal S1-S2 Abdomen: BS+, Soft, Nontender Extremities: Warm well perfused Neuro: Alert and awake. tremors in upper extremity secondary to Parkinson disease Results Labs CBC and Chem 7: 06/22/21 12:07 06/22/21 12:07 Labs: Laboratory Results - last 24 hr 0306/22/21 06/22/21 12:07 12:07 14:42 MCV 88.8 MCH 30.7 MCHC 34.5 RDW 12.4 Plt Count 241 MPV 9.8 Immature Gran % (Auto) 0.4 Neut % (Auto) 61.9 Lymph % (Auto) 25.5 [place] % (Auto) 8.7 Eos % (Auto) 2.8 Baso % (Auto) 0.7 Lymph # (Auto) 1.8 [place] # (Auto) 0.6 Eos # (Auto) 0.2 Baso # (Auto) 0.1 Abs Immat Gran (auto) 0.03 Absolute Neuts (auto) 4.5 Absolute Nucleated RBC 0.000 Nucleated RBC % (auto) 0.0 Anion Gap 16 Estim Creat Clear Calc 33.6 Estimated GFR 38 POC Glucose Random Glucose 286 H Calcium 10.5 H Magnesium 1.8 Total Bilirubin 0.8 Direct Bilirubin 0.3 AST 24 ALT 22 Alkaline Phosphatase 120 H D Total Protein 7.9 Albumin 4.4 Lipase 187 H Urine Color Urine Appearance Urine pH Ur Specific [place] Urine Protein Urine Glucose (UA) Urine Ketones Urine Blood Urine Nitrite Ur Leukocyte Esterase COVID-19 (OBDULIO) Negative COVID-19 Clin Com See Note 06/22/21 06/22/21 06/22/21 14:42 19:54 22:33 MCV MCH MCHC RDW Plt Count MPV Immature Gran % (Auto) Neut % (Auto) Lymph % (Auto) [place] % (Auto) Eos % (Auto) Baso % (Auto) Lymph # (Auto) [place] # (Auto) Eos # (Auto) Baso # (Auto) Abs Immat Gran (auto) Absolute Neuts (auto) Absolute Nucleated RBC Nucleated RBC % (auto) Anion Gap Estim Creat Clear Calc Estimated GFR POC Glucose 137 H 225 H Random Glucose Calcium Magnesium Total Bilirubin Direct Bilirubin AST ALT Alkaline Phosphatase Total Protein Albumin Lipase Urine Color YELLOW Urine Appearance CLEAR Urine pH 5.5 Ur Specific [place] 1.025 Urine Protein NEG Urine Glucose (UA) 500 H Urine Ketones NEG Urine Blood NEG Urine Nitrite NEG Ur Leukocyte Esterase NEG COVID-19 (OBDULIO) COVID-19 Clin Com Imaging Radiologist's Impressions: Impressions Chest X-Ray 06/22/21 16:28 IMPRESSION: Unremarkable examination. Assessment and Plan (1) Elevated troponin level: Status: Acute (2) Episodic lightheadedness: Status: Acute (3) Parkinsonism: Status: Acute Plan 76-year-old female with a past medical history of hypertension, familial hypercholesterolemia, diabetes, history of supraventricular tachycardia, parkinsonism; presented to the hospital today with a chief complaint of dizziness. Dizziness: Currently improved. Fall precautions. PT/ OT. Tachycardia: Patient had heart rate in 200s. Question SVT. No documented evidence. Currently heart rate well controlled. Denies any palpitations. EKG nonischemic and sinus rhythm Elevated troponins:? Demand versus NSTEMI. Empirically started on Lovenox. Telemetry. Echocardiogram. Cardiology consult. Continue home aspirin statin beta-ulises. History of diabetes: Insulin sliding scale History of Parkinson disease: Continue home carbidopa levodopa DVT prophylaxis: Patient on Lovenox Code status: Full code Quality Stroke Does the patient have a stroke diagnosis?: No VTE Prior VTE?: No VTE Risk Level:: Medical - moderate - high VTE Device Contraindication: Treatment Not Indicated VTE Drug Contraindication: N/A - Med Ordered
--- NOTE | 2021-06-23 | CA_ITS ---
Acquisition Time: 2021-06-24 08:21:35 Total Exercise Time: 00:02:00 Test Indications: Abnormal ECG Medications: SEE EMAR Protocol: LEXISCAN Max HR: 085 BPM 58% of Pred: 146 BPM Max BP: 118/068 mmHG Max Work Load: 1.0 METS Pharmacological stress test with Lexiscan injection, while sitting and kicking her legs, without anginal symptoms, with lightheadedness, diaphoresis and presyncope, with SR and low heart rate of 59 from baseline 60-70s, with hypotensive response to injection with low BP 92/60, with nondiagnostic EKG for ischemia. She was quickly placed in supine position and IV fluids open wide. At 2 min recovery she was treated with Aminophylline 75mg IVP to reverse Lexiscan with quick resolution of symptoms.She recieved a total of 250cc normal saline IV. Transitioned to sitting position and BP stable prior to completion of test. Nuclear images pending. Test reviewed with Dr Carpio. Referred By: Holden Carpio Overread By: ANCA SOTO
[2021-06-23 03:04] VITALS: BMI 28.0
[2021-06-23 04:00] VITALS: BP 171/81; PULSE 79; RESP 17; TEMP 36.9; O2SAT 96
[2021-06-23 06:03] LABS: MANUAL DIFF FLAG NO
[2021-06-23 06:09] LABS: Basophils Percent Auto 0.4 % (0-2); Eosinophils Absolute Auto 0.2 X10*3/uL (0.0-0.4); Eosinophils Percent Auto 2.5 % (0-4); Hematocrit 46.2 % (37.0-47.0); Hemoglobin 15.5 g/dl (12.0-16.0); Imm Gran Abs Auto 0.03 X10*3/uL (0.00-0.03); Imm Gran Pct Auto 0.4 % (0.0-0.4); Lymphocytes Absolute Auto 2.3 X10*3/uL (1.2-4.9); Lymphocytes Percent Auto 31.7 % (20-40); Mean Corpuscular HGB Conc 33.5 g/dl (31.0-35.0); Mean Corpuscular Hemoglobin 30.6 pg (27.0-33.0); Mean Corpuscular Volume 91.3 fL (80.0-98.0); Mean Platelet Volume 9.8 fL (9.4-12.3); Monocytes Absolute Auto 0.6 X10*3/uL (0.1-1.2); Monocytes Percent Auto 7.8 % (2-11); Neutrophils Absolute Auto 4.2 x10*3/uL (2.0-8.3); Neutrophils Percent Auto 57.2 % (45-73); Platelet Count 219 X10*3/uL (160-400); Red Blood Count 5.06 X10*6/uL (4.20-5.50); Red Cell Distribution Width 12.5 % (11.0-16.0); White Blood Count 7.3 X10*3/uL (4.8-10.8)
[2021-06-23 06:27] LABS: Anion Gap 14 (12-20); Blood Urea Nitrogen 18 mg/dL (9-16); Calcium 9.9 mg/dL (8.4-10.2); Carbon Dioxide 23 mmol/L (22-29); Chloride 105 mmol/L (96-108); Creatinine Clr Calc Pharmacy 45.1; Estimated Glomerular Filt Rate 52; Glucose Random 181 mg/dL (60-115); Magnesium 1.8 mg/dL (1.6-2.6); Potassium 4.3 mmol/L (3.3-5.1); Sodium 138 mmol/L (135-145)
[2021-06-23 07:18] VITALS: BP 125/73; PULSE 74; RESP 18; TEMP 36.7; O2SAT 94
[2021-06-23 07:36] LABS: Glucose, Whole Blood 198 mg/dL (60-115)
[2021-06-23] MEDS: Insulin Lispro 100 UNIT/ML 3 ML VIAL SUBCUT ×4 (08:17→21:10)
[2021-06-23] MEDS: 0.9 % Sodium Chloride Flush 3 ML SYRINGE IVFLUSH ×3 (08:18→21:11)
[2021-06-23] MEDS: lisinopriL 10 MG TABLET PO (08:18)
[2021-06-23] MEDS: atenoloL 25 MG TABLET PO (08:18)
[2021-06-23] MEDS: Atorvastatin Calcium 20 MG TABLET PO (08:18)
[2021-06-23] MEDS: Carbidopa/Levodopa 25/100 TABLET 1 TAB PO ×4 (08:18→21:10)
[2021-06-23] MEDS: Enoxaparin Sodium 40 MG/0.4 ML SYRINGE SUBCUT (08:30)
--- NOTE | 2021-06-23 10:15 | CA_ITS ---
Transthoracic Echocardiogram Patient (Last, First, Middle): Jenn Collier A Gender: Female Date of : 1945 Age: 76 Procedure Date: 06/23/2021 Procedure Type: Transthoracic Echocardiogram Location: S3E Height: 160.02 cm Weight: 71.67 kg BSA: 1.75 m2 Heart Rate: bpm BP: 171 / 81 mmHg Tipping Machine Operator: YR/TO Referring MD: Boom Bergman MD Symptoms: High troponins Study Quality: Fair ECG Rhythm: Sinus with artifact from tremors Conclusions: - The left ventricular systolic function is normal. The calculated ejection fraction is 61% by biplane method. - There is mild calcification of the aortic valve. - No obvious valvular pathology seen on this study. Findings Left Ventricle Normal left ventricular cavity size. There is normal left ventricular wall thickness. The left ventricular systolic function is normal. The calculated ejection fraction is 61% by biplane method. There is no evidence of regional wall motion abnormalities. Diastolic function is normal for age. Right Ventricle Normal right ventricular cavity size and systolic function. Atria Both atria are normal in size. Aortic Valve There is a normal trileaflet aortic valve. There is mild calcification of the aortic valve. There is no aortic valve stenosis. There is no aortic valve regurgitation. Mitral Valve The mitral valve appears normal. There is no mitral valve regurgitation. There is no mitral valve stenosis. Pulmonic Valve The pulmonic valve was not well visualized. Tricuspid Valve Normal tricuspid valve structure. There is trace tricuspid valve regurgitation. The pulmonary artery systolic pressure is normal. Great Vessels Top-normal ascending aortic size at 3.8 cm. Venous The inferior vena cava was not well visualized. Pericardium/Pleural There is no evidence of pericardial effusion. Prior Study Comparison No prior study available for comparison. Recommendations, Care & Conclusions No obvious valvular pathology seen on this study. Measurements 2D Linear Measurements IVSd: 0.99 0.6-0.9/0.6-1.0 cm LVIDd: 3.59 3.9-5.3/4.2-5.9 cm LVIDd Index: 2.05 2.4-3.2/2.2-3.1 cm/m2 LVIDs: 2.55 2.0-3.6 cm LVPWd: 0.91 0.7-1.1 cm LA Diam: 2.60 2.7-3.8/3.0-4.0 cm LAIDs Index: 1.49 1.5-2.3 cm/m2 LV Mass: 123.41 67-162/88-224 g LV Mass Index: 70.52 43-95/49-115 g/m2 LVOT Diam: 2.00 3.0+(-)1.3 cm 2D Systolic Function EF 4C: 60.00 >55% EF 2C: 62.40 >55% EF BiP: 61.30 >55% Mitral Valve MV Pk E: 0.73 MV PK A: 0.71 MV Decel Time: 257.00 E/A: 1.00 E'Lateral: 6.31 E'Medial: 5.00 E/E' Med: 14.60 E/E' Lat: 11.50 PHT: 75.00 MVA PHT: 2.93 Decel [place]: 2.84 Aortic Valve AoV Pk [place]: 1.00 AoV Mn [place]: 0.76 AoV VTI: 0.22 AoV Pk Grad: 4.00 Aov Mn Grad: 2.00 JAYCEE Cont.VTI: 2.34 LVOT LVOT Pk [place]: 0.78 LVOT Mn [place]: 0.57 LVOT VTI: 0.16 LVOT Pk Grad: 2.00 LVOT Mn Grad: 1.00 LVOT Diam: 2.00 LVOT Area: 3.14 Diastolic Function MV Pk E: 0.73 MV Pk A: 0.71 E/A: 1.00 E'Medial: 5.00 E/E' Med: 14.60 E' Laterial: 6.31 E/E' Lat: 11.50 Right Ventricle TAPSE (mm): 17.30 TVS' [place]: 8.92 Tricuspid Valve TR Pk [place]: 2.10 TR Pk Grad: 18.00 Great Vessels Aorta Sinus of Valsalva: 3.46 2.0-3.[address] [place]: 3.34 1.7-3.4 cm Ao Asc: 3.80 2.1-3.4 cm Ao Arch: 3.10 Updated in Other Vendor System with Status of Final Holden Carpio MD electronically signed on 06/23/2021 4:11:06 PM with status of Final
--- NOTE | 2021-06-23 10:41 | PM.CNCAR ---
History of Present Illness History of Present Illness Date of Service: 06/23/21 Chief complaint: Dizziness Narrative: This is a cardiology consultation regarding elevated troponins. Patient has history of hypertension, diabetes as well as Parkinson's disease. There is also mention history of supraventricular tachycardia. Yesterday she apparently had some dizziness and then she came to physical therapy she mentioned that she was not feeling well. That time, it seems that they try to check her heart rate by electronic blood pressure monitor but that came up to almost 200. However she also has tremors from Parkinson's and hence a lot of the telemetry heart rates are in correct as it is counting the tremors as the actual heart rate. Hence there is no clear evidence of any tachycardia based on this. Next in the interim, she also had enzymes checked and this showed a slight elevation of high sensitivity troponins and hence she has been admitted. Otherwise from a cardiac standpoint, there is no history of any coronary disease myocardial infarction or cardiomyopathy. She also denies any chest pain or shortness of breath. She states that she feels otherwise okay. Review of Systems Review of Systems: Yes all other systems are reviewed and are negative Cardiovascular: Cardiovascular: Reports as per HPI, Reports no additional cardiovascular complaints, Denies acrocyanosis, Denies cool extremities, Denies chest pain, Denies diaphoresis, Denies syncope, Denies claudication, Denies leg edema, Denies lightheadedness, Denies palpitations and Denies dyspnea Respiratory: Respiratory: Denies dyspnea Neurologic: Denies syncope Endocrine: Endocrine: Denies palpitations PMFSH Past Medical History Medical History Diabetes mellitus Essential hypertension Familial hypercholesterolemia Parkinsonism Supraventricular tachycardia Family History Family History Father No problems noted. Mother No problems noted. Surgical History Surgical History History of appendectomy History of hemorrhoidectomy History of tumor Social History Social History Household Members: Spouse Housing: House Do you presently have visiting nurse or other home services: No Alcohol intake: never Patient Tobacco Use Status: Never used Tobacco e-Cigarette/Vaping Use: Never Used Second Hand Smoke Exposure: No Use of substances other than those prescribed or required for medical reasons: No Have you been hit, kicked, punched, or otherwise hurt by someone within the past year? If so, by whom?: No Do you feel safe in your current relationship?: No Current Relationship Is there a partner from a previous relationship who is making you feel unsafe now?: No Are you made to feel afraid or neglected: No Advance Directives: No Advance Directives Information Provided: No Do you have thoughts of harming others: None Do you have a plan to hurt others: No Plan Recently lost weight without trying: No Eating poorly because of decreased appetite: No Nutrition Risks: No Nutritional Risk Patient : No : No Poor oral hygiene: Yes service: No Current occupational status: retired Cognitive needs: No Hearing needs: No Vision needs: Yes (glasses) Meds Allergies Allergy/AdvReac Type Severity Reaction Status Date / Time No Known Allergies Allergy Verified 06/03/21 09:20 Active Medications: Current Medications Aspirin (Aspirin Enteric Coated 81 Mg Tablet.) 81 mg PO DAILY PRN PRN Reason: Headache Atenolol (Atenolol 25 Mg Tablet) 25 mg PO DAILY [facility]; Protocol Last Admin: 06/23/21 08:18 Dose: 25 mg Documented by: Atorvastatin Calcium (Atorvastatin Calcium 20 Mg Tablet) 20 mg PO DAILY [facility] Last Admin: 06/23/21 08:18 Dose: 20 mg Documented by: Carbidopa/Levodopa (Carbidopa/Levodopa 25/100 Tablet) 1 tab PO QID [facility] Last Admin: 06/23/21 08:18 Dose: 1 tab Documented by: Dextrose (Dextrose 50 % 25 Gm/50 Ml Vial) 25 gm IVPUSH Q15M PRN; Protocol PRN Reason: per Hypoglycemia Standing Ord. Enoxaparin Sodium (Enoxaparin Sodium 40 Mg/0.4 Ml Syringe) 40 mg SUBCUT Q24H [facility] Last Admin: 06/23/21 08:30 Dose: 40 mg Documented by: Glucose (Glucose Gel 15 Gm Gel..Gram.) 15 gm PO Q15M PRN; Protocol PRN Reason: per Hypoglycemia Standing Ord. Insulin Human Lispro (Insulin Lispro 100 Unit/Ml 3 Ml Vial) 0 unit SUBCUT QIDACHS [facility]; Protocol Last Admin: 06/23/21 08:17 Dose: 2 unit Documented by: Lisinopril (Lisinopril 10 Mg Tablet) 10 mg PO DAILY [facility]; Protocol Last Admin: 06/23/21 08:18 Dose: 10 mg Documented by: Melatonin (Melatonin 3 Mg Tablet) 6 mg PO BEDTIME PRN PRN Reason: Insomnia Senna (Sennosides 8.6 Mg Tablet) 17.2 mg PO BEDTIME PRN PRN Reason: Constipation Sodium Chloride (0.9 % Sodium Chloride Flush 3 Ml Syringe) 3 ml IVFLUSH QSHIFT [facility] Last Admin: 06/23/21 08:18 Dose: 3 ml Documented by: Home Medications Medication Instructions Recorded Confirmed Last Taken Type aspirin 81 mg tablet,delayed 81 mg PO DAILY PRN 01/28/21 06/22/21 Unknown History release (Adult Low Dose Aspirin) atenolol 25 mg tablet 25 mg PO DAILY 01/28/21 06/22/21 Unknown History carbidopa 25 mg-levodopa 100 mg 1 tab PO QID tab 01/28/21 06/22/21 06/22/21 History tablet metformin 500 mg tablet 500 mg PO BIDWM 06/22/21 06/22/21 06/22/21 History Physical Exam Vital Signs: Vital Signs: Last Vital Signs Temp 98.1 F 06/23/21 07:18 Pulse 74 06/23/21 07:18 Resp 18 06/23/21 07:18 BP 125/73 06/23/21 07:18 Pulse Ox 94 06/23/21 07:18 BMI result Body Mass Index 28.0 Const: General: comfortable HENMT: Other: Unremarkable Neck: Neck: Yes normal visual inspection Chest: Chest palpation & inspection: normal inspection of the chest Resp: Auscultation: clear to auscultation bilaterally Cardio: Palpation: normal PMI Heart sounds: S1 normal heart sound present, S2 normal heart sound present, no gallops, no murmurs and no rubs GI: Palpation (GI): Soft to palpation Back/Spine/Pelvis: Other: unremarkable Skin: Lesions: other Neuro: General: other Extrem: General: Yes other Psych: Mental Status: other Objective Labs and Meds Result diagrams: 06/23/21 05:30 06/23/21 05:30 Lab results: Laboratory Results - last 24 hr 06/22/21 06/22/21 06/22/21 12:07 12:07 12:07 WBC 7.2 RBC 5.64 H Hgb 17.3 H Hct 50.1 H MCV 88.8 MCH 30.7 MCHC 34.5 RDW 12.4 Plt Count 241 MPV 9.8 Immature Gran % (Auto) 0.4 Neut % (Auto) 61.9 Lymph % (Auto) 25.5 [place] % (Auto) 8.7 Eos % (Auto) 2.8 Baso % (Auto) 0.7 Lymph # (Auto) 1.8 [place] # (Auto) 0.6 Eos # (Auto) 0.2 Baso # (Auto) 0.1 Abs Immat Gran (auto) 0.03 Absolute Neuts (auto) 4.5 Absolute Nucleated RBC 0.000 Nucleated RBC % (auto) 0.0 Sodium 137 Potassium 4.3 Chloride 104 Carbon Dioxide 21 L Anion Gap 16 BUN 25 H Creatinine 1.36 Estim Creat Clear Calc 33.6 Estimated GFR 38 POC Glucose Random Glucose 286 H Calcium 10.5 H Magnesium 1.8 Total Bilirubin 0.8 Direct Bilirubin 0.3 AST 24 ALT 22 Alkaline Phosphatase 120 H D Troponin I High Sens 5.1 Total Protein 7.9 Albumin 4.4 Lipase 187 H Urine Color Urine Appearance Urine pH Ur Specific [place] Urine Protein Urine Glucose (UA) Urine Ketones Urine Blood Urine Nitrite Ur Leukocyte Esterase COVID-19 (OBDULIO) COVID-I-frontdesk 06/22/21 06/22/21 06/22/21 14:42 14:42 15:58 WBC RBC Hgb Hct MCV MCH MCHC RDW Plt Count MPV Immature Gran % (Auto) Neut % (Auto) Lymph % (Auto) [place] % (Auto) Eos % (Auto) Baso % (Auto) Lymph # (Auto) [place] # (Auto) Eos # (Auto) Baso # (Auto) Abs Immat Gran (auto) Absolute Neuts (auto) Absolute Nucleated RBC Nucleated RBC % (auto) Sodium Potassium Chloride Carbon Dioxide Anion Gap BUN Creatinine Estim Creat Clear Calc Estimated GFR POC Glucose Random Glucose Calcium Magnesium Total Bilirubin Direct Bilirubin AST ALT Alkaline Phosphatase Troponin I High Sens 18.5 H D Total Protein Albumin Lipase Urine Color YELLOW Urine Appearance CLEAR Urine pH 5.5 Ur Specific [place] 1.025 Urine Protein NEG Urine Glucose (UA) 500 H Urine Ketones NEG Urine Blood NEG Urine Nitrite NEG Ur Leukocyte Esterase NEG COVID-19 (OBDULIO) Negative COVID-19 Clin Com See Note 06/22/21 06/22/21 06/22/21 18:08 19:54 22:33 WBC RBC Hgb Hct MCV MCH MCHC RDW Plt Count MPV Immature Gran % (Auto) Neut % (Auto) Lymph % (Auto) [place] % (Auto) Eos % (Auto) Baso % (Auto) Lymph # (Auto) [place] # (Auto) Eos # (Auto) Baso # (Auto) Abs Immat Gran (auto) Absolute Neuts (auto) Absolute Nucleated RBC Nucleated RBC % (auto) Sodium Potassium Chloride Carbon Dioxide Anion Gap BUN Creatinine Estim Creat Clear Calc Estimated GFR POC Glucose 137 H 225 H Random Glucose Calcium Magnesium Total Bilirubin Direct Bilirubin AST ALT Alkaline Phosphatase Troponin I High Sens 24.9 H Total Protein Albumin Lipase Urine Color Urine Appearance Urine pH Ur Specific [place] Urine Protein Urine Glucose (UA) Urine Ketones Urine Blood Urine Nitrite Ur Leukocyte Esterase COVID-19 (OBDULIO) COVID-I-frontdesk 06/23/21 06/23/21 06/23/21 05:30 05:30 05:30 WBC 7.3 RBC 5.06 Hgb 15.5 Hct 46.2 MCV 91.3 MCH 30.6 MCHC 33.5 RDW 12.5 Plt Count 219 MPV 9.8 Immature Gran % (Auto) 0.4 Neut % (Auto) 57.2 Lymph % (Auto) 31.7 [place] % (Auto) 7.8 Eos % (Auto) 2.5 Baso % (Auto) 0.4 Lymph # (Auto) 2.3 [place] # (Auto) 0.6 Eos # (Auto) 0.2 Baso # (Auto) 0.0 Abs Immat Gran (auto) 0.03 Absolute Neuts (auto) 4.2 Absolute Nucleated RBC 0.000 Nucleated RBC % (auto) 0.0 Sodium 138 Potassium 4.3 Chloride 105 Carbon Dioxide 23 Anion Gap 14 BUN 18 H Creatinine 1.04 Estim Creat Clear Calc 45.1 Estimated GFR 52 POC Glucose Random Glucose 181 H Calcium 9.9 Magnesium 1.8 Total Bilirubin Direct Bilirubin AST ALT Alkaline Phosphatase Troponin I High Sens Total Protein Albumin Lipase Urine Color Urine Appearance Urine pH Ur Specific [place] Urine Protein Urine Glucose (UA) Urine Ketones Urine Blood Urine Nitrite Ur Leukocyte Esterase COVID-19 (OBDULIO) COVIDD and K interprises 06/23/21 07:16 WBC RBC Hgb Hct MCV MCH MCHC RDW Plt Count MPV Immature Gran % (Auto) Neut % (Auto) Lymph % (Auto) [place] % (Auto) Eos % (Auto) Baso % (Auto) Lymph # (Auto) [place] # (Auto) Eos # (Auto) Baso # (Auto) Abs Immat Gran (auto) Absolute Neuts (auto) Absolute Nucleated RBC Nucleated RBC % (auto) Sodium Potassium Chloride Carbon Dioxide Anion Gap BUN Creatinine Estim Creat Clear Calc Estimated GFR POC Glucose 198 H Random Glucose Calcium Magnesium Total Bilirubin Direct Bilirubin AST ALT Alkaline Phosphatase Troponin I High Sens Total Protein Albumin Lipase Urine Color Urine Appearance Urine pH Ur Specific [place] Urine Protein Urine Glucose (UA) Urine Ketones Urine Blood Urine Nitrite Ur Leukocyte Esterase COVID-19 (OBDULIO) COVID-19 Clin Com Imaging Radiologist's impression: Impressions Chest X-Ray 06/22/21 16:28 IMPRESSION: Unremarkable examination. Assessment and Plan (1) Elevated troponin level: Status: Acute (2) Episodic lightheadedness: Status: Acute (3) Parkinsonism: Status: Acute (4) Essential hypertension: Status: Acute (5) Type 2 diabetes mellitus with unspecified complications: Status: Acute Plan EKG has baseline artifact due to the tremors but otherwise no clear ischemic findings. Troponins are 5.1 followed by 18.5 and 24.9. Hence there is a slight incremental elevation. However, she has no chest pain or other findings of acute coronary syndrome. Her blood pressures were high yesterday and not clear if that played a role. Today, it seems normal. With regard to the question of heart rates very high, I wonder if it is all from tremors causing inaccurate monitoring as there is no evidence of any arrhythmia on telemetry or EKG. Considering her risk factors including age, diabetes, hypertension, could have underlying coronary disease. We can get an echocardiogram and stress test. Will follow up with you tomorrow. Procedures Date of Service Date of Service: 06/23/21
--- NOTE | 2021-06-23 11:17 | P.PNIM_ITS ---
Subjective Subjective Date of Service: 06/23/21 Interval History: cc: dizzy interval history: back to baseline Cardiovascular Cardiovascular: Reports no additional cardiovascular complaints Respiratory Respiratory: Reports no additional respiratory complaints Physical Exam Vital Signs: Vital Signs: Last Vital Signs Temp 98.1 F 06/23/21 07:18 Pulse 74 06/23/21 07:18 Resp 18 06/23/21 07:18 BP 125/73 06/23/21 07:18 Pulse Ox 94 06/23/21 07:18 BMI result Body Mass Index 28.0 General: AO X 3, no acute distress Resp: CTA bilateral, no accessory muscles used CVS: S1,S2,RRR GI: soft, non tender, non distended Neuro: motor grossly intact, alert, resting tremor Psych: appropriate affect, appropriate insight Objective Data Active Medications Aspirin (Aspirin Enteric Coated 81 Mg Tablet.) 81 mg PO DAILY PRN PRN Reason: Headache Atenolol (Atenolol 25 Mg Tablet) 25 mg PO DAILY [facility]; Protocol Last Admin: 06/23/21 08:18 Dose: 25 mg Documented by: TRUPTI Atorvastatin Calcium (Atorvastatin Calcium 20 Mg Tablet) 20 mg PO DAILY [facility] Last Admin: 06/23/21 08:18 Dose: 20 mg Documented by: TRUPTI Carbidopa/Levodopa (Carbidopa/Levodopa 25/100 Tablet) 1 tab PO QID [facility] Last Admin: 06/23/21 08:18 Dose: 1 tab Documented by: TRUPTI Dextrose (Dextrose 50 % 25 Gm/50 Ml Vial) 25 gm IVPUSH Q15M PRN; Protocol PRN Reason: per Hypoglycemia Standing Ord. Enoxaparin Sodium (Enoxaparin Sodium 40 Mg/0.4 Ml Syringe) 40 mg SUBCUT Q24H [facility] Last Admin: 06/23/21 08:30 Dose: 40 mg Documented by: TRUPTI Glucose (Glucose Gel 15 Gm Gel..Gram.) 15 gm PO Q15M PRN; Protocol PRN Reason: per Hypoglycemia Standing Ord. Insulin Human Lispro (Insulin Lispro 100 Unit/Ml 3 Ml Vial) 0 unit SUBCUT QIDACHS [facility]; Protocol Last Admin: 06/23/21 08:17 Dose: 2 unit Documented by: TRUPTI Lisinopril (Lisinopril 10 Mg Tablet) 10 mg PO DAILY [facility]; Protocol Last Admin: 06/23/21 08:18 Dose: 10 mg Documented by: TRUPTI Melatonin (Melatonin 3 Mg Tablet) 6 mg PO BEDTIME PRN PRN Reason: Insomnia Senna (Sennosides 8.6 Mg Tablet) 17.2 mg PO BEDTIME PRN PRN Reason: Constipation Sodium Chloride (0.9 % Sodium Chloride Flush 3 Ml Syringe) 3 ml IVFLUSH QSHIFT [facility] Last Admin: 06/23/21 08:18 Dose: 3 ml Documented by: TRUPTI Labs CBC & Chem 7: 06/23/21 05:30 06/23/21 05:30 Labs: Laboratory Results - last 24 hr 06/22/21 06/22/21 06/22/21 12:07 12:07 14:42 MCV 88.8 MCH 30.7 MCHC 34.5 RDW 12.4 Plt Count 241 MPV 9.8 Immature Gran % (Auto) 0.4 Neut % (Auto) 61.9 Lymph % (Auto) 25.5 [place] % (Auto) 8.7 Eos % (Auto) 2.8 Baso % (Auto) 0.7 Lymph # (Auto) 1.8 [place] # (Auto) 0.6 Eos # (Auto) 0.2 Baso # (Auto) 0.1 Abs Immat Gran (auto) 0.03 Absolute Neuts (auto) 4.5 Absolute Nucleated RBC 0.000 Nucleated RBC % (auto) 0.0 Anion Gap 16 Estim Creat Clear Calc 33.6 Estimated GFR 38 POC Glucose Random Glucose 286 H Calcium 10.5 H Magnesium 1.8 Total Bilirubin 0.8 Direct Bilirubin 0.3 AST 24 ALT 22 Alkaline Phosphatase 120 H D Total Protein 7.9 Albumin 4.4 Lipase 187 H Urine Color Urine Appearance Urine pH Ur Specific [place] Urine Protein Urine Glucose (UA) Urine Ketones Urine Blood Urine Nitrite Ur Leukocyte Esterase COVID-19 (OBDULIO) Negative COVID-19 Clin Com See Note 06/22/21 06/22/21 06/22/21 14:42 19:54 22:33 MCV MCH MCHC RDW Plt Count MPV Immature Gran % (Auto) Neut % (Auto) Lymph % (Auto) [place] % (Auto) Eos % (Auto) Baso % (Auto) Lymph # (Auto) [place] # (Auto) Eos # (Auto) Baso # (Auto) Abs Immat Gran (auto) Absolute Neuts (auto) Absolute Nucleated RBC Nucleated RBC % (auto) Anion Gap Estim Creat Clear Calc Estimated GFR POC Glucose 137 H 225 H Random Glucose Calcium Magnesium Total Bilirubin Direct Bilirubin AST ALT Alkaline Phosphatase Total Protein Albumin Lipase Urine Color YELLOW Urine Appearance CLEAR Urine pH 5.5 Ur Specific [place] 1.025 Urine Protein NEG Urine Glucose (UA) 500 H Urine Ketones NEG Urine Blood NEG Urine Nitrite NEG Ur Leukocyte Esterase NEG COVID-19 (OBDULIO) COVID-19 Clin Com 06/23/21 06/23/21 06/23/21 05:30 05:30 05:30 MCV 91.3 MCH 30.6 MCHC 33.5 RDW 12.5 Plt Count 219 MPV 9.8 Immature Gran % (Auto) 0.4 Neut % (Auto) 57.2 Lymph % (Auto) 31.7 [place] % (Auto) 7.8 Eos % (Auto) 2.5 Baso % (Auto) 0.4 Lymph # (Auto) 2.3 [place] # (Auto) 0.6 Eos # (Auto) 0.2 Baso # (Auto) 0.0 Abs Immat Gran (auto) 0.03 Absolute Neuts (auto) 4.2 Absolute Nucleated RBC 0.000 Nucleated RBC % (auto) 0.0 Anion Gap 14 Estim Creat Clear Calc 45.1 Estimated GFR 52 POC Glucose Random Glucose 181 H Calcium 9.9 Magnesium 1.8 Total Bilirubin Direct Bilirubin AST ALT Alkaline Phosphatase Total Protein Albumin Lipase Urine Color Urine Appearance Urine pH Ur Specific [place] Urine Protein Urine Glucose (UA) Urine Ketones Urine Blood Urine Nitrite Ur Leukocyte Esterase COVID-19 (OBDULIO) COVID-19 Clin Com 06/23/21 07:16 MCV MCH MCHC RDW Plt Count MPV Immature Gran % (Auto) Neut % (Auto) Lymph % (Auto) [place] % (Auto) Eos % (Auto) Baso % (Auto) Lymph # (Auto) [place] # (Auto) Eos # (Auto) Baso # (Auto) Abs Immat Gran (auto) Absolute Neuts (auto) Absolute Nucleated RBC Nucleated RBC % (auto) Anion Gap Estim Creat Clear Calc Estimated GFR POC Glucose 198 H Random Glucose Calcium Magnesium Total Bilirubin Direct Bilirubin AST ALT Alkaline Phosphatase Total Protein Albumin Lipase Urine Color Urine Appearance Urine pH Ur Specific [place] Urine Protein Urine Glucose (UA) Urine Ketones Urine Blood Urine Nitrite Ur Leukocyte Esterase COVID-19 (OBDULIO) COVID-19 Clin Com Assessment and Plan (1) Type 2 diabetes mellitus with unspecified complications: Status: Acute Plan 76F presented with dizziness dizziness with elevated troponin continue tele, no need for therapeutic lovenox at this time, plan for stress test, continue asa, statin, beta ulises DM insulin PD sinemet reason for continued hospitalization: cardiology recommending inpatient stress test. Quality Stroke Does the patient have a stroke diagnosis?: No VTE Prior VTE?: No VTE Risk Level:: Medical - moderate - high VTE Device Contraindication: Treatment Not Indicated VTE Drug Contraindication: N/A - Med Ordered
[2021-06-23 11:20] VITALS: BP 133/73; PULSE 80; RESP 18; TEMP 36.7; O2SAT 94
[2021-06-23 12:03] LABS: Glucose, Whole Blood 262 mg/dL (60-115)
--- NOTE | 2021-06-23 14:54 | MHC.CM.PN ---
met with pt her and sons one of the sons lives with his parents with his .pt had no services prior to admission it is uncertain that she will rewquire servjessica when dcd dcd [place] [facility] [place] priro to this hospitial admission dc plan home no servjessica
[2021-06-23 15:19] VITALS: BP 145/67; PULSE 74; RESP 18; TEMP 35.8; O2SAT 94
[2021-06-23 15:54] LABS: Glucose, Whole Blood 252 mg/dL (60-115)
[2021-06-23 19:25] VITALS: BP 134/82; PULSE 71; RESP 18; TEMP 35.9; O2SAT 96
[2021-06-23 20:03] LABS: Glucose, Whole Blood 235 mg/dL (60-115)
[2021-06-23 23:38] VITALS: BP 125/84; PULSE 72; RESP 16; TEMP 37.2; O2SAT 96
[2021-06-24 04:00] VITALS: BP 140/82; PULSE 64; RESP 16; TEMP 36.1; O2SAT 93
[2021-06-24 07:29] LABS: Glucose, Whole Blood 157 mg/dL (60-115)
[2021-06-24] MEDS: Atorvastatin Calcium 20 MG TABLET PO (07:48)
[2021-06-24] MEDS: Carbidopa/Levodopa 25/100 TABLET 1 TAB PO ×2 (07:48→12:31)
[2021-06-24] MEDS: lisinopriL 10 MG TABLET PO (07:48)
[2021-06-24] MEDS: atenoloL 25 MG TABLET PO (07:48)
[2021-06-24] MEDS: Insulin Lispro 100 UNIT/ML 3 ML VIAL SUBCUT ×2 (07:49→12:31)
[2021-06-24] MEDS: 0.9 % Sodium Chloride Flush 3 ML SYRINGE IVFLUSH (07:49)
[2021-06-24 08:00] VITALS: BP 125/76; PULSE 66; RESP 17; TEMP 36; O2SAT 95
[2021-06-24] MEDS: Enoxaparin Sodium 40 MG/0.4 ML SYRINGE SUBCUT (10:39)
[2021-06-24 11:18] VITALS: BP 142/70; PULSE 66; RESP 17; TEMP 36.1; O2SAT 97
--- NOTE | 2021-06-24 11:21 | P.PNCA_ITS ---
Subjective Subjective Date of Service: 06/24/21 Interval history: She feels well. No clear chest pain or other cardiac symptoms. Review of Systems Review of Systems Yes all other systems are reviewed and are negative Cardiovascular: Reports as per HPI, Reports no additional cardiovascular complaints, Denies acrocyanosis, Denies cool extremities, Denies chest pain, Denies diaphoresis, Denies syncope, Denies claudication, Denies leg edema, Denies lightheadedness, Denies palpitations and Denies dyspnea Respiratory: Denies dyspnea Denies syncope Endocrine: Denies palpitations Physical Exam Vital Signs: Last Vital Signs Temp 96.9 F 06/24/21 11:18 Pulse 66 06/24/21 11:18 Resp 17 06/24/21 11:18 BP 142/70 H 06/24/21 11:18 Pulse Ox 97 06/24/21 11:18 BMI result Body Mass Index 28.0 Const General: comfortable HENMT Other: Unremarkable Neck Neck: Yes normal visual inspection Chest Chest palpation & inspection: normal inspection of the chest Resp Auscultation: clear to auscultation bilaterally Cardio Palpation: normal PMI Heart sounds: S1 normal heart sound present, S2 normal heart sound present, no gallops, no murmurs and no rubs GI Palpation (GI): Soft to palpation Back/Spine/Pelvis Other: unremarkable Skin Lesions: other Neuro General: other Extrem General: Yes other Psych Mental Status: other Objective Labs and Meds Result diagrams: 06/23/21 05:30 06/23/21 05:30 Lab results: Laboratory Results - last 24 hr 06/23/21 06/23/21 06/23/21 05:30 11:10 15:22 POC Glucose 262 H 252 H Magnesium 1.8 06/23/21 06/24/21 19:28 07:24 POC Glucose 235 H 157 H Magnesium Progress Note: A&P Assessment and plan (1) Elevated troponin level: Status: Acute (2) Episodic lightheadedness: Status: Acute (3) Parkinsonism: Status: Acute (4) Essential hypertension: Status: Acute (5) Type 2 diabetes mellitus with unspecified complications: Status: Acute Plan EKG has baseline artifact due to the tremors but otherwise no clear ischemic findings. Troponins are 5.1 followed by 18.5 and 24.9. Hence there is a slight incremental elevation. However, she has no chest pain or other findings of acute coronary syndrome. Her blood pressures were high initially, and not clear if that played a role. With regard to the question of heart rates very high, I wonder if it is all from tremors causing inaccurate monitoring as there is no evidence of any arrhythmia on telemetry or EKG. Considering her risk factors including age, diabetes, hypertension, could have underlying coronary disease. Echocardiogram with LVEF 61% and mild aortic valve calcification but otherwise unremarkable. Her stress test, on preliminary views do not show any clear findings to suggest ischemia. Final read is pending. Upon discharge, we can arrange follow-up in office. Fall Risk Details Current Medications: Current Medications Aspirin (Aspirin Enteric Coated 81 Mg Tablet.) 81 mg PO DAILY PRN PRN Reason: Headache Atenolol (Atenolol 25 Mg Tablet) 25 mg PO DAILY [facility]; Protocol Last Admin: 06/24/21 07:48 Dose: 25 mg Documented by: Atorvastatin Calcium (Atorvastatin Calcium 20 Mg Tablet) 20 mg PO DAILY [facility] Last Admin: 06/24/21 07:48 Dose: 20 mg Documented by: Carbidopa/Levodopa (Carbidopa/Levodopa 25/100 Tablet) 1 tab PO QID [facility] Last Admin: 06/24/21 07:48 Dose: 1 tab Documented by: Dextrose (Dextrose 50 % 25 Gm/50 Ml Vial) 25 gm IVPUSH Q15M PRN; Protocol PRN Reason: per Hypoglycemia Standing Ord. Enoxaparin Sodium (Enoxaparin Sodium 40 Mg/0.4 Ml Syringe) 40 mg SUBCUT Q24H [facility] Last Admin: 06/24/21 10:39 Dose: 40 mg Documented by: Glucose (Glucose Gel 15 Gm Gel..Gram.) 15 gm PO Q15M PRN; Protocol PRN Reason: per Hypoglycemia Standing Ord. Insulin Human Lispro (Insulin Lispro 100 Unit/Ml 3 Ml Vial) 0 unit SUBCUT QIDACHS [facility]; Protocol Last Admin: 06/24/21 07:49 Dose: 2 unit Documented by: Lisinopril (Lisinopril 10 Mg Tablet) 10 mg PO DAILY [facility]; Protocol Last Admin: 06/24/21 07:48 Dose: 10 mg Documented by: Melatonin (Melatonin 3 Mg Tablet) 6 mg PO BEDTIME PRN PRN Reason: Insomnia Senna (Sennosides 8.6 Mg Tablet) 17.2 mg PO BEDTIME PRN PRN Reason: Constipation Sodium Chloride (0.9 % Sodium Chloride Flush 3 Ml Syringe) 3 ml IVFLUSH QSHIFT [id number] Last Admin: 06/24/21 07:49 Dose: 3 ml Documented by: Time Spent With Patient Time: Total time spent is greater than 50% in coordination of care (as documented) at patient's floor/unit and/or counseling patient: Time with patient: less than 15 minutes Progress Note: Quality Stroke Does the patient have a stroke diagnosis?: No Procedures Date of Service Date of Service: 06/24/21
[2021-06-24 11:28] LABS: Glucose, Whole Blood 242 mg/dL (60-115)
[2021-06-24 11:48] VITALS: BP 135/65; PULSE 65; RESP 17; TEMP 36.4; O2SAT 96
--- NOTE | 2021-06-24 12:31 | P.DS_ITS ---
DS: Providers Provider Date of Service: 06/24/21 Date of admission: 06/22/21 19:38 Primary care physician: James Kim MD Consults: 06/22/21 19:38 Consult to Cardiology Routine Consulting Provider: Holden Carpio Reason for consultation: dizziness DS: Diagnosis Discharge Diagnosis (1) Elevated troponin level: Status: Acute (2) Episodic lightheadedness: Status: Acute (3) Parkinsonism: Status: Acute DS: Summary Hospital Course Hospital Course: Admission note HPI ? 76-year-old female with a past medical history of hypertension, familial hypercholesterolemia, diabetes, history of supraventricular tachycardia, parkinsonism; presented to the hospital today with a chief complaint of dizzines s.? Patient reported that he was starting for protein feels like the.? [facility] at home and had dizziness briefly; all she came to the hospital for physical therapy she mentioned that she was not feeling right and the followed by she felt dizzy and when sitting vitals he noted to have heart rate in low 100s; denied any palpitations.?Denies any chest pain.?Denies any fever chills cough.? Mentions dizziness was with episode.? Denies any dizziness at the time of my interview.?Denies any urinary symptoms.? Per ER team patient heart rate improved; further bleeding low 100s; exam benign; CT head showed no acute findings; troponins 5.1, 18.5, 24.9.? EKG was nonischemic.? Discussed with Dr. Carpio from cardiology who recommended? Lovenox for possible NSTEMI.? Also suggested echocardiogram.? Admitted to the hospital for further management Hospital course The patient was admitted for evaluation of elevated troponin in setting of lightheadedness. Negative EKG, troponin 5.1, 18.5, 24.9 which considered low and the patient was admitted for evaluation by Cardiology who recommended a stress test which was done and came back preliminaries negative for any coronary syndrome. Patient will be discharged home on aspirin statin and beta-ulises to follow up with Cardiology as outpatient. Her lightheadedness resolved and seem to be from noncardiac reason. She was advised to follow-up with Neurology as outpatient if these episodes are recurrent given her history of Parkinson disease. Dizziness and Parkinson dizziness and Parkinson dizziness Time Spent with Patient Time attestation: Total time spent providing and/or coordinating discharge services: Discharge coordination time: Greater than 30 minutes Quality: Stroke Does the patient have a stroke diagnosis?: No Physical Exam Vital Signs: Vital Signs: Last Vital Signs Temp 97.5 F 06/24/21 11:48 Pulse 65 06/24/21 11:48 Resp 17 06/24/21 11:48 BP 135/65 06/24/21 11:48 Pulse Ox 96 06/24/21 11:48 BMI result Body Mass Index 28.0 Const: Other: Constitutional : Alert, oriented, not in distress Neck : Normal inspection, Supple Cardiovascular : RRR, S1 S2, no lower extremity edema Respiratory : Good bilateral air entry, no crackles, wheezes or rhonchi Gastrointestinal: soft, lax, Normal bowel sounds, Non tender Skin : Warm, Dry Neurological : Alert & oriented x3, No focal deficit DS: Data Data Completed and Pending Labs on day of discharge: Laboratory Results - last 24 hr 06/23/21 06/23/21 06/23/21 05:30 15:22 19:28 POC Glucose 252 H 235 H Magnesium 1.8 06/24/21 06/24/21 07:24 11:20 POC Glucose 157 H 242 H Magnesium Discharge Plan Discharge Patient Disposition: Home, Self-Care Discharge Diagnosis: Lightheadedness Elevated cardiac enzymes Referrals: Holden Carpio MD [Physician] - 2 days James Kim MD [Primary Care Provider] - 1 Week Discharge Medications: Continued atorvastatin 20 mg tablet 20 mg PO DAILY Qty: 90 1RF lisinopril 10 mg tablet 10 mg PO DAILY Qty: 90 1RF metformin 500 mg tablet 500 mg PO BIDWM 0RF carbidopa-levodopa 25-100 mg tablet 1 tab PO QID 0RF aspirin [Adult Low Dose Aspirin] 81 mg tablet,delayed release (DR/EC) 81 mg PO DAILY PRN (Reason: Headache) 0RF atenolol 25 mg tablet 25 mg PO DAILY 0RF Discharge Orders: Discharge Order (Routine); Ordered 06/24/21 Ordered By: Danny Perdue Diet: advance to usual diet Activity on Discharge: As tolerated Stand Alone Forms: Patient Portal Discharge page Print Language: Jamaican Care Plan Goals: Read below Health Concerns: Read below Plan of Treatment: Read below Assessment: You were admitted to the hospital for evaluation of lightheadedness. Images did not show any acute findings. Cardiac enzymes noted to be mildly elevated. Evaluated by candy roller who recommended stress test which was done and came back negative. Continue your current home medications to follow-up with Neurology if these episodes are recurrent given your history of Parkinson disease Patient Instructions: Lightheadedness (ED)
--- NOTE | 2021-06-24 12:45 | MHC.CM.PN ---
PATIENT IS DISCHARGED HOME WITH RESUMPTION OF HER OUTPATIENT REHAB SERVICES
== END 2021-06-24 14:33 | disposition home or self-care (01) | DRG 111 ==
LOC: HO.ED 19:39 → HO.EDOVER 19:42 → HO.S3 06-23 01:49
PROVIDERS: Internal Medicine; Physician Assistant; Admitting Provider Hospitalist; Emergency Provider Internal Medicine; PCP Internal Medicine; Visit Provider Student in an Organized Health Care Education/Training Program
DX: R42 Dizziness and giddiness (principal); G20 Parkinson's disease; E11.9 Type 2 diabetes mellitus without complications; R79.89 Other specified abnormal findings of blood chemistry; E78.5 Hyperlipidemia, unspecified; I10 Essential (primary) hypertension; Z20.822 Contact with and (suspected) exposure to COVID-19; Z79.82 Long term (current) use of aspirin; Z79.84 Long term (current) use of oral hypoglycemic drugs; Z79.899 Other long term (current) drug therapy
CPT/HCPCS: 36415; 71045; 78452; 80048; 80076; 81003; 82947; 83690; 83735; 84484; 85025; 87635; 93005; 93017; 93306; 99218; 99285; A9500; J0280; J1650; J2785

== ENCOUNTER → 2021-07-29 13:42 | Outpatient (BNVA) | payer OTHER, SELFPAY | PROVIDERS: PCP Internal Medicine; Referring Provider Internal Medicine; Visit Provider Internal Medicine | DX: Z13.89 Encounter for screening for other disorder (principal) ==

== ENCOUNTER 2021-09-09 11:00 | Outpatient (RCR) | payer OTHER, SELFPAY ==
--- NOTE | 2021-02-02 15:14 | MHC.PT.EP ---
[facility] [place] [facility] [place] [facility] [place] Office [address] Christelle Rojo [address] [phone] F: [phone] F: [phone] F: [phone] F: [phone] Physical Therapy Plan of Care Date of Evaluation: Date of Surgery: N/A Diagnosis: Parkinson's Assessment: pt presents w/ functional testing putting her at risk for future falls. pt scored out of acceptable range of 5xSTS and TUG testing. pt admits to furniture cruising when it is available to her. She currently does not use an AD. pt's greatest impairments appear to be w/ task sequencing, real time modulation of speed, as well as resting and intentional tremors. pt presents to physical therapy with pain, decreased range of motion, decreased strength, impaired functional mobility, impaired postural awareness, and gait deviations. pt is a good candidate for skilled PT due to age, potential remediation of impairments, typical disease/condition progression and prognosis, comorbidities, and motivation. pt would benefit from tailored strengthening and stretching exercise program, functional training, gait training, postural re-training, neuromuscular re-education, modalities as needed for pain, and equipment safety demonstration. Frequency and Duration: The patient will be seen 2x/wk for 8 wks Short Term Goals: pt will be I w/ HEP to promote self-management of condition. pt will perform STS transfer w/ one attempt and improved sequencing. Senior Care Goals: pt will reduce 5xSTS by 12 seconds to reduce fall risk while transferring at home and in community. pt will report a statistically significant improvement in self-reported outcome measure, LEFI, to prevent progression of Parkinson's. Treatment Plan: Modalities to reduce pain, spasms and effusion. Manual therapy to restore motion and function. Therapeutic exercise to improve strength and flexibility. Neuromuscular re-education for posture and balance. Therapeutic activities to return to functional activities of daily living. Electronically signed by: Andree Anderson PT, DPT Please sign and return to therapist. Thank you for your referral.
--- NOTE | 2021-09-13 10:22 | MHC.PT.DC ---
[facility] [place] Office [place] Office [place] Office [address] Christelle Rojo 140 [facility] [phone] F: [phone] F: [phone] F: [phone] F: [phone] Physical Therapy Discharge Report Diagnosis: Parkinson's Date of Surgery: N/A Date of Evaluation: 02/02/21 Date of Discharge: 09/13/21 Treatments to Date: 30 Cancellations to Date: 12 No Shows to Date: 0 Discharge Status: Recommend MD Follow-up Discharge Summary: The patient overall has made minimal improvement in physical therapy. Given the progressive nature of Parkinson's she has had minimal regressions including a slight increase in her hand and foot tremors. Her plan of care was complicated by a hospital admission and poor carryover with education. The patient is also not compliant with her home exercise program. She was educated on the importance of continuing with her exercises to maintain the gains she has made so far in therapy. The patient is discharged from this physical therapy plan of care to her home exercise program at this time. The expectation is that she will perform her HEP for at least three months before another referral to PT should be made. Electronically signed by: Andree Anderson PT, DPT Please sign and return to therapist. Thank you for your referral.
== END 2021-09-13 10:22 | disposition home or self-care (01) ==
LOC: HO.PT 11:00
PROVIDERS: PCP Internal Medicine; Visit Provider Psychiatry & Neurology Neurology
DX: G20 Parkinson's disease (principal)
CPT/HCPCS: 97110; 97112; 97162; 97164; 97530

== ENCOUNTER 2022-01-28 10:27 | Outpatient (REF) | payer OTHER, SELFPAY ==
[2022-01-28 11:46] LABS: Estimated Average Glucose 183 mg/dL
[2022-01-28 11:47] LABS: Hematocrit 47.1 % (37.0-47.0); Hemoglobin 16.2 g/dl (12.0-16.0); Mean Corpuscular HGB Conc 34.4 g/dl (31.0-35.0); Mean Corpuscular Hemoglobin 31.2 pg (27.0-33.0); Mean Corpuscular Volume 90.8 fL (80.0-98.0); Platelet Count 224 X10*3/uL (160-400); Red Blood Count 5.19 X10*6/uL (4.20-5.50); Red Cell Distribution Width 12.6 % (11.0-16.0); White Blood Count 7.4 X10*3/uL (4.8-10.8)
[2022-01-28 11:55] LABS: Appearance Urine Clear; Color Urine Yellow; Glucose Urine UA Negative (Negative); Leukocyte Esterase Urine Small (1+) (Negative); Nitrite Urine Negative (Negative); PH 5.5 (5.0-9.0); UMIC TRIGGER UA YES; Urine Blood Negative (Negative); Urine Ketones Negative (Negative); Urine Protein Negative (Neg-Trace)
[2022-01-28 12:03] LABS: Bacteria Urine None Seen (None Seen); Hyaline Casts Urine 0-2 /LPF (0-2); RBC Urine 0-2 /HPF (0-2)
[2022-01-28 12:23] LABS: Alanine Aminotransferase 66 U/L (0-31); Albumin Level 4.5 g/dL (3.5-5.0); Anion Gap 19 (12-20); Aspartate Amino Transferase 39 U/L (5-31); Bilirubin Direct 0.3 mg/dL (0.0-0.5); Bilirubin Total 1.3 mg/dL (0.0-1.0); Blood Urea Nitrogen 16 mg/dL (9-16); Calcium 9.9 mg/dL (8.4-10.2); Carbon Dioxide 23 mmol/L (22-29); Chloride 102 mmol/L (96-108); Estimated Glomerular Filt Rate 51; Glucose Random 160 mg/dL (60-115); Potassium 4.4 mmol/L (3.3-5.1); Sodium 140 mmol/L (135-145); Total Protein 8.2 g/dL (6.5-8.0); Triglycerides 264 mg/dL
[2022-01-28 12:24] LABS: Alkaline Phosphatase 114 U/L (39-117); Cholesterol 269 mg/dL; HDL Cholesterol 44 mg/dL; LDL Cholesterol Calculated 173 mg/dl
[2022-01-28 12:44] LABS: Thyroid Stimulating Hormone 2.34 uIU/mL (0.32-4.0)
== END 2022-01-28 10:28 | disposition home or self-care (01) ==
LOC: HO.LAB 10:27
PROVIDERS: PCP Internal Medicine; Visit Provider Internal Medicine
DX: E11.9 Type 2 diabetes mellitus without complications (principal); G20 Parkinson's disease; N39.0 Urinary tract infection, site not specified
CPT/HCPCS: 36415; 80048; 80061; 80076; 81001; 83036; 84443; 85027

== ENCOUNTER 2022-03-09 17:16 | Emergency (ER) | payer OTHER, SELFPAY ==
--- NOTE | ~2022-03-09 | CT_ITS ---
CT head/brain wo IV con CLINICAL INFORMATION: Reason for Exam fall, head strike COMPARISON: Prior CT scan from 2017 TECHNIQUE: Department standard protocol. This CT examination was performed using dose optimization techniques as appropriate, variously including the following: *Automated exposure control *Adjustment of mA and/or kV according to patient size (this includes techniques or standardized protocols for targeted exams where dose is matched to indication/reason for exam; i.e. 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 BRAIN PARENCHYMA: Deep white matter and paraventricular hypoattenuation, nonspecific; most likely changes secondary to chronic ischemia due to microvascular angiopathy. SUBDURAL SPACE: No bleed. BASAL GANGLIA AND PINEAL GLAND: Unremarkable VENTRICLES: Symmetric and normal in size. CEREBELLUM AND BRAINSTEM: No space-occupying mass, hemorrhage or acute infarct. CEREBELLOPONTINE ANGLES: No lesion found. ORBITS: No intraorbital mass. VESSELS: Unremarkable SKULL BASE: Unremarkable INCLUDED SINUSES AT SKULL BASE: Clear SKULL AND SKIN: There is extracalvarial subcutaneous hematoma left occipital lobe roughly measure 2.5 cm, underlying bone is intact. No associated intracranial bleed. CT/CT head/brain wo IV con IMPRESSION: * There is extracalvarial subcutaneous hematoma left occipital lobe. * No intracranial bleed. 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 * Deep white matter and periventricular hypoattenuation, nonspecific; most likely sequela of chronic microvascular angiopathy ischemia.
--- NOTE | ~2022-03-09 | CT_ITS ---
EXAMINATION: CT CERVICAL SPINE WITHOUT CONTRAST CLINICAL INFORMATION: Fall with head strike COMPARISON: None. TECHNIQUE: Contiguous helical images of the cervical spine were obtained without IV contrast. Multiplanar reconstructions were performed. This CT examination was performed using dose optimization techniques as appropriate, variously including the following: *Automated exposure control *Adjustment of mA and/or kV according to patient size (this includes techniques or standardized protocols for targeted exams where dose is matched to indication/reason for exam; i.e. extremities or head) *Use of iterative reconstruction technique DLP: 305 mGy-cm FINDINGS: Alignment:Straightening of the normal cervical lordosis. Minimal retrolisthesis at C5-C6. No additional subluxation. Vertebra:No acute fracture. No prevertebral soft tissue swelling. Degenerative disc disease:Moderate disc height loss at C5-C6 with mild endplate sclerosis and proliferative change. Intervertebral disc heights otherwise fairly well-maintained. Uncovertebral spurring on the right at C6. Multilevel facet arthrosis greatest on the left at C2-C3 and C3-C4. Other findings:No cervical lymphadenopathy. Visualized major salivary glands and thyroid gland are unremarkable. Visualized base of the brain is grossly unremarkable. Visualized lung apices are clear. CT/CT cervical spine wo IV con IMPRESSION: No traumatic subluxation or acute cervical spine fracture.
[2022-03-09 17:30] VITALS: BP 140/90; BP 175/82; PULSE 78; PULSE 84; RESP 16; TEMP 36.7; O2SAT 95; O2SAT 97; BMI 28.8
--- NOTE | 2022-03-09 17:36 | ED_ITS ---
HPI - Fall General Chief Complaint: Fall Stated Complaint: FALL,LAC TO HEAD,-LOC,-THINNERS,+COLLAR Time Seen by Provider: 03/09/22 17:36 Source: patient and EMS Mode of arrival: EMS Limitations: no limitations History of Present Illness HPI Narrative: 77-year-old female presents via EMS for a trip and fall. Patient stated that she tripped over her feet while getting out of her chair, and hit her head on the coffee table. She is in a C-collar, has a large laceration to the back of her head, not report prodromal events prior to the fall. MD complaint: fall Onset (ago): hour(s) (Within the hour of arrival) Fall from: standing Fall witnessed: no Place fall occurred: home Loss of consciousness: none Prolonged down time: no Symptoms prior to fall: none Context: tripped/slipped Location of injury: head Severity: moderate Severity scale (1-10): 5 Quality: aching Associated symptoms (after fall): headache Related Data Home Medications Medication Instructions Recorded Confirmed aspirin 81 mg tablet,delayed 81 mg PO DAILY PRN Headache 01/28/21 01/30/22 release (Adult Low Dose Aspirin) atenolol 25 mg tablet 25 mg PO DAILY 01/28/21 01/30/22 carbidopa 25 mg-levodopa 100 mg 1 tab PO QID 01/28/21 01/30/22 tablet Previous Rx's Medication Instructions Recorded lisinopril 10 mg tablet 10 mg PO DAILY #90 tabs 12/26/21 atorvastatin 20 mg tablet 20 mg PO DAILY #90 tabs 12/30/21 metformin 500 mg tablet 1,000 mg PO BID #360 tabs 02/05/22 Allergies Allergy/AdvReac Type Severity Reaction Status Date / Time No Known Allergies Allergy Verified 01/30/22 07:22 Review of Systems Review of Systems: Constitutional: No Fever, No Chills ENT/Mouth: No Ear Pain, No Hoarseness, No sore throat Eyes: No Eye Pain, No Swelling, No Redness, No Foreign Body Cardiovascular: No Chest Pain, No SOB Respiratory: No Cough, No Dyspnea Gastrointestinal: No Nausea, No Vomiting, No Diarrhea, No abdominal Pain Genitourinary: No Dysuria, No Hematuria Musculoskeletal: positive neck pain, No Myalgias, No Joint Swelling Skin: Positive occipital laceration, No rash Neuro: No Weakness, No Numbness, No Paresthesias, No Loss of Consciousness, No Dizziness, positive Headache Psych: No Anxiety/Panic, No Depression Heme/Lymph: no easy bruising, no Lymphadenopathy Endocrine: No Polyuria, No Polydipsia Yes all other systems are reviewed and are negative COUNTS INCLUDE 234 BEDS AT THE [facility] Past Medical History Attestation statement: The following information was validated with the patient. Source: old records reviewed Medical History Diabetes mellitus Essential hypertension Familial hypercholesterolemia Parkinsonism Supraventricular tachycardia Type 2 diabetes mellitus with unspecified complications Surgical History History of appendectomy History of hemorrhoidectomy History of tumor Family History Family History Father No problems noted. Mother No problems noted. Social History Social History Household Members: Spouse Housing: House Do you presently have visiting nurse or other home services: No Alcohol intake: never Patient Tobacco Use Status: Never used Tobacco Smoked in Last 30 Days: No e-Cigarette/Vaping Use: Never Used Second Hand Smoke Exposure: No Use of substances other than those prescribed or required for medical reasons: No Advance Directives: Yes Advance Directives Information Provided: No Advance Directives on File: No service: No Current occupational status: retired Cognitive needs: No Hearing needs: No Vision needs: Yes (glasses) Physical Exam Vital Signs: Vital Signs: Last Vital Signs Temp 98.0 F 03/09/22 21:13 Pulse 80 03/09/22 21:13 Resp 18 03/09/22 21:13 BP 156/81 H 03/09/22 21:13 Pulse Ox 95 03/09/22 21:13 O2 Del Method 03/09/22 21:13 BMI result Body Mass Index 28.8 Appearance: Alert. Oriented X3. No acute distress. Eyes: Pupils equal, round and reactive to light. ENT: Pharynx normal. Neck: Normal inspection. Neck supple. CVS: Normal heart rate and rhythm. Pulses normal. Respiratory: No respiratory distress. Breath sounds normal. Abdomen: Soft and nontender. Skin: Skin warm and dry. Normal skin color. Normal skin turgor. Extremities: No lower extremity edema. Moves all extremities against resistance Neuro: No motor deficit. No sensory deficit. Course Course Course Narrative: 77-year-old female presents via EMS for injury sustained from a fall. She is in a C-collar, has a laceration to the back of her head. Patient is alert oriented x4, Lincoln coma Scale 15, NIH stroke scale 0. Patient states that she had a mechanical fall, tripped over her feet while getting out of her chair and hit the back of her head on a coffee table. Patient does not report losing consciousness, and is able to recall all of the events. Patient's son found her on the ground, and applied pressure to the back of her head to try to control the bleeding. It is unknown when her last Tdap vaccine was updated. Patient is able to move all of her extremities, her pelvis is stable, no chest wall tenderness, no abdominal pain or distention, cranial nerves 2 through intact and neurovascularly intact. Will order CT scan of head, cervical spine. Update Tdap vaccine today. CT scan of head and cervical spine are negative for acute findings. Wound irrigated with copious amounts of sterile saline with hydrogen peroxide. Laceration is approximately 7 cm, 18 emilie applied. Patient tolerated procedure well. I did discuss in detail post concussive protocol with the patient, and the patient's family. I also described in detail signs and symptoms indicating need for emergent intervention, which patient and patient's family understood. She does understand that she must follow-up with her primary care physician for post concussive protocol. Patient verbalized understanding of and agrees to plan of care discharge home. Verbalized understanding of signs and symptoms indicating need for emergent intervention Medications Administered Discontinued Medications Generic Name Dose Route Start Last Admin Trade Name Freq PRN Reason Stop Dose Admin Diphtheria/Tetanus/Acell Pertussis 0.5 ml 03/09/22 17:40 03/09/22 17:58 Diphth,Pertus(Acell),Tet Adult 0.5 Ml Syringe IM 03/09/22 17:41 0.5 ml .ONCE ONE Administration Procedures Laceration Laceration 1: Site: scalp Side (If applicable): left Size (cm): 7 Description: linear Depth: simple, single layer Pre-repair: wound explored and irrigated extensively Skin layer closed with: other (emilie) Number of sutures: 18 MDM - Fall Differential Diagnosis Differential diagnosis: Likely dislocation, fracture, compression fracture and concussion without loss of consciousness Medical Records Attestation: I reviewed the patient's medical records. Imaging Data ct head cervical spine: Attestation: I personally reviewed and interpreted this imaging study as follows: Radiologist's impression: CT head/brain wo IV con CLINICAL INFORMATION: Reason for Exam fall, head strike COMPARISON: Prior CT scan from 2017 TECHNIQUE: Department standard protocol. This CT examination was performed using dose optimization techniques as appropriate, variously including the following: *Automated exposure control *Adjustment of mA and/or kV according to patient size (this includes techniques or standardized protocols for targeted exams where dose is matched to indication/reason for exam; i.e. extremities or head) *Use of iterative reconstruction technique DLP: 1006 mGy-cm FINDINGS: ? 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 BRAIN PARENCHYMA: Deep white matter and paraventricular hypoattenuation, nonspecific; most likely changes secondary to chronic ischemia due to microvascular angiopathy. SUBDURAL SPACE: No bleed. BASAL GANGLIA AND PINEAL GLAND: Unremarkable VENTRICLES: Symmetric and normal in size. CEREBELLUM AND BRAINSTEM: No space-occupying mass, hemorrhage or acute infarct. CEREBELLOPONTINE ANGLES: No lesion found. ORBITS: No intraorbital mass. VESSELS: Unremarkable SKULL BASE: Unremarkable INCLUDED SINUSES AT SKULL BASE: Clear SKULL AND SKIN: There is extracalvarial subcutaneous hematoma left occipital lobe roughly measure 2.5 cm, underlying bone is intact. No associated intracranial bleed. CT/CT head/brain wo IV con IMPRESSION: *? There is extracalvarial subcutaneous hematoma left occipital lobe. *? No intracranial bleed. *? 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 *? Deep white matter and periventricular hypoattenuation, nonspecific; most likely sequela of chronic microvascular angiopathy ischemia. FINDINGS: Alignment:Straightening of the normal cervical lordosis. Minimal retrolisthesis at C5-C6. No additional subluxation. Vertebra:No acute fracture. No prevertebral soft tissue swelling. Degenerative disc disease:Moderate disc height loss at C5-C6 with mild endplate sclerosis and proliferative change. Intervertebral disc heights otherwise fairly well-maintained. Uncovertebral spurring on the right at C6. Multilevel facet arthrosis greatest on the left at C2-C3 and C3-C4. Other findings:No cervical lymphadenopathy. Visualized major salivary glands and thyroid gland are unremarkable. Visualized base of the brain is grossly unremarkable. Visualized lung apices are clear. CT/CT cervical spine wo IV con IMPRESSION: No traumatic subluxation or acute cervical spine fracture. Discharge Plan Discharge Clinical Impression: Concussion without loss of consciousness, Laceration of scalp, Fall Patient Disposition: Home, Self-Care Instructions: Laceration (ED), Concussion (ED), Post Concussion Syndrome (ED), Fall Prevention (ED) Additional Instructions: You were evaluated for injuries sustained from a fall. CT scan of head and cervical spine are negative for acute findings. We repaired her scalp laceration with 18 emilie. Please return in 10-14 days to have emilie removed. May present to her primary care physician's office or urgent care as well as the emergency department for this procedure. Follow-up post concussive protocol. You must follow up with primary care physician this week for close follow-up. Use Tylenol 650 mg every 6 hours as needed for headache and muscle aches. If symptoms worsen, please return to the emergency department immediately Thank you for choosing this emergency department for evaluation. Please follow-up with primary care physician as needed. Return to the emergency department for any new, concerning, or worsening symptoms. Prescriptions: No Action lisinopril 10 mg tablet 10 mg PO DAILY Qty: 90 1RF atorvastatin 20 mg tablet 20 mg PO DAILY Qty: 90 0RF metformin 500 mg tablet 1,000 mg PO BID Qty: 360 1RF carbidopa-levodopa 25-100 mg tablet 1 tab PO QID aspirin [Adult Low Dose Aspirin] 81 mg tablet,delayed release (DR/EC) 81 mg PO DAILY PRN (Reason: Headache) atenolol 25 mg tablet 25 mg PO DAILY Referrals: James Kim MD [Primary Care Provider] - 3 days (Post concussive protocol, scalp laceration) Interventions: ED Discharge Assessment Last Done: 03/09/22 21:32 Discharge Date/Time: 03/09/22 21:33
[2022-03-09] MEDS: Diphth,Pertus(ACell),Tet Adult 0.5 ML SYRINGE IM (17:58)
[2022-03-09 20:42] VITALS: BP 146/100; PULSE 77; RESP 18; TEMP 36.9; O2SAT 96
--- NOTE | 2022-03-09 20:45 | PC.NURSE ---
No library monitor needed per Darwin Souza MD
[2022-03-09 21:13] VITALS: BP 156/81; PULSE 80; RESP 18; TEMP 36.7; O2SAT 95
== END 2022-03-09 21:33 | disposition home or self-care (01) ==
PROVIDERS: Emergency Provider Emergency Medicine; PCP Internal Medicine
DX: S06.0X0A Concussion without loss of consciousness, initial encounter (principal); S01.01XA Laceration without foreign body of scalp, initial encounter; W07.XXXA Fall from chair, initial encounter; Y93.89 Activity, other specified; Y92.019 Unspecified place in single-family (private) house as the place of occurrence of the external cause; Y99.9 Unspecified external cause status
CPT/HCPCS: 12002; 70450; 72125; 90471; 90715; 99284

== ENCOUNTER → 2022-07-27 13:40 | Outpatient (BNVA) | payer OTHER, SELFPAY | PROVIDERS: PCP Internal Medicine; Referring Provider Internal Medicine; Visit Provider Internal Medicine | DX: R77.8 Other specified abnormalities of plasma proteins (principal) | CPT/HCPCS: 93005 ==

== ENCOUNTER 2022-09-29 14:00 | Outpatient (RCR) | payer OTHER, SELFPAY ==
--- NOTE | 2022-09-13 13:35 | MHC.PT.EP ---
[facility] [place] Office [place] Office [place] Office [address] Christelle Rojo [address] [phone] F: [phone] F: [phone] F: [phone] F: [phone] Physical Therapy Plan of Care Date of Evaluation: Date of Surgery: N/A Diagnosis: Parkinson's (RL) Assessment: pt is a 77 y/o female presenting to physical therapy w/ referring diagnosis of Parkinson's. Impairments include pain, decreased range of motion, decreased strength, impaired functional mobility, impaired postural awareness, and altered ambulation mechanics. pt is a fair candidate for skilled PT due to age, potential remediation of impairments, typical disease/condition progression and prognosis, comorbidities, and motivation. pt would benefit from skilled PT intervention to provide a tailored strengthening and stretching exercise program, functional training, gait training, postural re-training, neuromuscular re-education, modalities as needed for pain, equipment safety demonstration. Frequency and Duration: The patient will be seen 2x/wk for 5 wks Short Term Goals: pt will be I w/ HEP to promote self-management of condition. pt will participate in 5xSTS and TUG to determine baseline functional status/fall risk. Custodial Goals: pt will navigate 15 stairs mod I level using LRAD to promote access to primary living spaces. Treatment Plan: Modalities to reduce pain, spasms and effusion. Manual therapy to restore motion and function. Therapeutic exercise to improve strength and flexibility. Neuromuscular re-education for posture and balance. Therapeutic activities to return to functional activities of daily living. Electronically signed by: Andree Lozano PT, DPT Please sign and return to therapist. Thank you for your referral.
--- NOTE | 2022-10-28 15:41 | MHC.PT.DC ---
[facility] [place] Office [place] Office [place] Office [address] Christelle Rojo 140 [facility] [phone] F: [phone] F: [phone] F: [phone] F: [phone] Physical Therapy Discharge Report Diagnosis: Parkinson's (RL) Date of Surgery: N/A Date of Evaluation: 09/13/22 Date of Discharge: 10/28/22 Treatments to Date: 4 Cancellations to Date: 7 No Shows to Date: 0 Discharge Status: Patient Elected to Stop Recommend MD Follow-up Discharge Summary: The patient's called to discharge the patient from PT as she is having tremendous difficulty trying to get out of the house due to her ambulation and balance. She would be a good candidate for home PT if she would be interested in this. Electronically signed by: Andree Lozano PT, DPT Please sign and return to therapist. Thank you for your referral.
== END 2022-10-28 15:41 | disposition home or self-care (01) ==
LOC: HO.PT 14:00
PROVIDERS: PCP Internal Medicine; Visit Provider Internal Medicine
DX: G20 Parkinson's disease (principal)
CPT/HCPCS: 97110; 97116; 97162

== ENCOUNTER 2023-03-23 12:00 | Outpatient (RCR) | payer OTHER, SELFPAY ==
--- NOTE | 2023-02-03 16:06 | MHC.PT.EP ---
[facility] [place] Office [place] Office [place] Office [address] Christelle Rojo [address] [phone] F: [phone] F: [phone] F: [phone] F: [phone] Physical Therapy Plan of Care Date of Evaluation: 02/03/23 Date of Surgery: N/A Diagnosis: Parkinson's (RL) Assessment: pt is a 77 y/o male presenting to physical therapy w/ referring diagnosis of Parkinson's. Impairments include pain, decreased range of motion, decreased strength, impaired functional mobility, impaired postural awareness, and altered ambulation mechanics. pt is a fair candidate for skilled PT due to age, potential remediation of impairments, typical disease/condition progression and prognosis, comorbidities, and motivation. pt would benefit from skilled PT intervention to provide a tailored strengthening and stretching exercise program, functional training, gait training, postural re-training, neuromuscular re-education, modalities as needed for pain, equipment safety demonstration. Frequency and Duration: The patient will be seen 2x/wk for 4 wks Short Term Goals: pt will be I w/ HEP to promote self-management of condition. pt will participate in functional objective measures to assess baseline fall risk. Tailer Out Goals: pt will ascend/descend 15 stairs mod I level using railing. pt will perform sit<>stand transfer mod I level. Treatment Plan: Modalities to reduce pain, spasms and effusion. Manual therapy to restore motion and function. Therapeutic exercise to improve strength and flexibility. Neuromuscular re-education for posture and balance. Therapeutic activities to return to functional activities of daily living. Electronically signed by: Andree Lozano PT, DPT Please sign and return to therapist. Thank you for your referral.
--- NOTE | 2023-04-13 14:45 | MHC.PT.DC ---
[facility] [place] Office [place] Office [place] Office [address] Christelle Rojo 140 [facility] [phone] F: [phone] F: [phone] F: [phone] F: [phone] Physical Therapy Discharge Report Diagnosis: Parkinson's (RL) Date of Surgery: N/A Date of Evaluation: 02/03/23 Date of Discharge: 04/13/23 Treatments to Date: 7 Cancellations to Date: 7 No Shows to Date: 2 Discharge Status: Discharge Summary: The patient's informed our department that Jenn suffered a brain bleed over the weekend and is essentially in a state of comatose and is comfort measures at this time. She is not likely to make a recovery and is discharged from this physical therapy plan of care at this time. Electronically signed by: Andree Lozano PT, DPT Please sign and return to therapist. Thank you for your referral.
== END 2023-04-13 14:46 | disposition home or self-care (01) ==
LOC: HO.PT 12:00
PROVIDERS: PCP Internal Medicine; Visit Provider Psychiatry & Neurology Neurology
DX: G20.C Parkinsonism, unspecified (principal)
CPT/HCPCS: 97110; 97112; 97116; 97162; 97530

== ENCOUNTER 2023-04-09 16:40 | Emergency (ER) | payer OTHER, SELFPAY ==
--- NOTE | ~2023-04-09 | CT_ITS ---
EXAMINATION: CT head/brain wo IV con CLINICAL INFORMATION: Reason for Exam changes in speech since 4pm yesterday COMPARISON: CT head without contrast 03/09/2022 TECHNIQUE: Contiguous axial imaging was performed from the skull base to vertex without intravenous contrast. Sagittal and coronal reformatted images were obtained. This CT examination was performed using dose optimization techniques as appropriate, variously including the following: * Automated exposure control * Adjustment of mA and/or kV according to patient size (this includes techniques or standardized protocols for targeted exams where dose is matched to indication/reason for exam; i.e. extremities or head) Use of iterative reconstruction technique DLP: 641 mGy-cm FINDINGS: No acute osseous or soft tissue abnormality. Postsurgical changes from left-sided craniotomy. The mastoid air cells and visualized portions of the paranasal sinuses are well aerated. Acute intraparenchymal hemorrhage within the lateral left frontoparietal lobe measuring 2.9 x 2.4 x 3.1 cm with hematocrit level and small adjacent subarachnoid blood products. Mild locoregional mass effect with sulcal effacement. No midline shift or downward herniation. No other acute intracranial hemorrhage is identified. There is no evidence of territorial infarction. Mcdonald to white matter differentiation is well preserved. No extra-axial fluid collections are identified. No hydrocephalus. Proportional prominence of the ventricles and sulcal spaces is consistent with mild volume loss. Confluent periventricular and deep white matter hypoattenuation is consistent with severe small vessel ischemic changes. CT/CT head/brain wo IV con IMPRESSION: Acute intraparenchymal hemorrhage within the lateral left frontoparietal lobe measuring up to 3.1 cm with small adjacent subarachnoid blood products. No midline shift or downward herniation. Above impression was communicated to on 04/09/2023 6:06 PM
--- NOTE | 2023-04-09 16:49 | ED_ITS ---
HPI - General Adult General Chief complaint: Neuro Symptoms/Deficit Stated complaint: ? stroke Time Seen by Provider: 04/09/23 17:47 Source: patient and family ( son, spouse) Mode of arrival: ambulatory Limitations: no limitations History of Present Illness HPI narrative: 78-year-old female with history of Parkinson's disease, diabetes, hypertension, remote history of brain tumor resection ( record of the brain tumor not available) came in with her and son concerned of speech problem was the patient started since yesterday at 16:00 patient otherwise do not complain of any other neurological deficit. No CP, no SOB, no abdominal pain, no fever, no chills , no headache, no blurry vision. Related Data Home Medications Medication Instructions Recorded Confirmed atenolol 25 mg tablet 25 mg PO DAILY 01/28/21 08/31/22 aspirin 81 mg tablet,delayed 81 mg PO DAILY PRN Headache 07/27/22 08/31/22 release (Adult Low Dose Aspirin) Previous Rx's Medication Instructions Recorded atorvastatin 20 mg tablet 20 mg PO DAILY #90 tabs 12/30/21 lisinopril 10 mg tablet 10 mg PO DAILY #90 tabs 08/05/22 carbidopa 25 mg-levodopa 100 mg 1 tab PO QID #180 tabs 10/13/22 tablet metformin 500 mg tablet 1,000 mg (2 x 500 mg) PO BID #360 10/13/22 tabs Allergies Allergy/AdvReac Type Severity Reaction Status Date / Time No Known Allergies Allergy Verified 04/09/23 16:55 Review of Systems 2 Review of Systems: All other systems are reviewed and are negative Constitutional: Reports as per HPI and Reports no additional constitutional complaints Eyes: Reports as per HPI and Reports no additional eye complaints Reports system reviewed and no additional complaints, except as documented Cardiovascular: Reports as per HPI and Reports no additional cardiovascular complaints Respiratory: Reports as per HPI and Reports no additional respiratory complaints Gastrointestinal: Reports as per HPI and Reports no additional gastrointestinal complaints Genitourinary: Reports no additional female genitourinary complaints Musculoskeletal: Reports no additional musculoskeletal complaints Skin/Breast: Reports system reviewed and no additional complaints, except as docu Psychiatric: Reports no additional psychiatric complaints Endocrine: Reports no additional endocrine complaints Hematologic/Lymphatic: Reports no additional hematologic/lymphatic complaints Allergic/Immunologic: Reports no additional allergic/immunologic complaints Reports system reviewed and no additional complaints, except as documented and Reports Abnormal speech present PMFSH Past Medical History Medical History Type 2 diabetes mellitus with unspecified complications Essential hypertension Familial hypercholesterolemia Supraventricular tachycardia Parkinsonism Diabetes mellitus Surgical History History of tumor History of hemorrhoidectomy History of appendectomy Family History Family History Father No problems noted. Mother No problems noted. Social History Social History Household Members: Spouse Housing: House Do you presently have visiting nurse or other home services: No Alcohol intake: never Patient Tobacco Use Status: Never used Tobacco Smoked in Last 30 Days: No e-Cigarette/Vaping Use: Never Used Second Hand Smoke Exposure: No Use of substances other than those prescribed or required for medical reasons: No Advance Directives: Yes Advance Directives Information Provided: No Advance Directives on File: No service: No Current occupational status: retired Cognitive needs: No Hearing needs: No Vision needs: Yes (glasses) Physical Exam ED Vital Signs: Vital Signs - 24 hr 04/09/23 16:55 Temperature 98.0 F Pulse Rate 82 Respiratory Rate 18 Blood Pressure 142/93 H Pulse Oximetry 98 Oxygen Delivery Method Room Air BMI result Body Mass Index 23.3 Vital signs have been reviewed and appear to be correct. Blood pressure elevated. Heart rate normal. Respiratory rate normal. Temperature normal. Oxygen saturation normal. Appearance: Alert. Oriented X3. No acute distress. Head: Normal external exam. Normocephalic. Atraumatic. No Duong signs noted. No raccoon eyes noted Eyes: PERRLA. EOMI. Conjunctiva and sclera normal. Eyelids normal. ENT: TM's Normal. Pharynx normal. Uvula midline. Moist mucous membranes. No trismus noted. No drooling noted. No muffled voice noted. Neck: Normal inspection. Neck supple. FROM. No adenopathy. Thyroid Normal. No meningeal signs. No neck mass noted. CVS: Normal heart rate and rhythm. Heart sound normal. No murmurs noted. Pulses normal throughout. Respiratory: No respiratory distress. Painless inspiration. Breath sounds normal. No wheezes/rales/rhonchi noted. Chest nontender. No accessory muscle usage noted or decreased air movement noted. Abdomen: Soft and nontender. Bowel sounds normal in all 4 quadrants. No distention noted. No organomegaly noted. No visible injury noted. Back: No CVA tenderness. Full range of motion noted. Skin: Skin warm and dry. Normal skin color. Normal skin turgor. No rashes/lesions/lacerations noted. Extremities: No lower extremity edema. Extremities exhibit normal range of motion. Extremities nontender. Neuro: Oriented X 3. Cranial nerve exam: II-XII are grossly intact , gross expressive aphasia No motor deficit. No sensory deficit. Reflexes normal. NIH Stroke Scale Time: 18:52 Level of Consciousness: Alert Level of Consciousness Questions: Answers both questions correctly Level of Consciousness Commands: Performs both tasks correctly Best Gaze: Normal Visual: No visual loss Facial Palsy: Normal Motor Arm (Right): No drift Motor Arm (Left): No drift Motor Leg (Right): No drift Motor Leg (Left): No drift Limb Ataxia: Absent Sensory: Normal Best Language: Severe aphasia Dysarthia: Normal Extinction and Inattention: No abnormality Score: 2 Course Course Course Narrative: This is a rapid medical exam: Additional HPI, ROS, PE not included below will be deferred to primary provider. Patient is a 78-year-old female with history of Parkinsonism, DM presenting to the ED with who reports patient's speech became more tremulous than normal since 4pm yesterday. Denies any other symptoms. Patient denies any pain. NIHSS limited due to Parkinson symptoms. Face symmetrical, no pronator drift. denies falls or other recent trauma. denies any cough or other URI symptoms. Plan: CT head Reevaluation(s) Reevaluation #1: a 78-year-old female came in with gross expressive aphasia found to have left frontal intraparenchymal bleed with no midline shift, patient is not on AC, case discussed with Dr. Patel at [facility] who is accepting the patient for further management, recommended to keep systolic blood pressure under 150. Time: 18:53 Reevaluation #2: case discussed with at [facility] patient has been accepted to in ICU. Time: 19:04 Medical Decision Making Differential Diagnosis Differential Diagnoses: The differential diagnosis associated with the presentation includes ( hemorrhagic stroke, ischemic stroke, electrolyte abnormality, severe anemia.) Admission/Observation Consideration of admission/observation: Escalation of care including admission/observation considered Consult Healthcare Provider Management of the patient was discussed with: Transportation Refrigeration Technician (Dr. Patel at [facility] ) Lab Data MDM Lab Attestation statement: I reviewed the patient's lab results. 04/09/23 17:59 Labs: Lab Results 04/09/23 Range/Units 17:59 WBC 8.0 (4.8-10.8) X10*3/uL RBC 4.63 (4.20-5.50) X10*6/uL Hgb 14.8 (12.0-16.0) g/dl Hct 42.6 (37.0-47.0) % MCV 92.0 (80.0-98.0) fL MCH 32.0 (27.0-33.0) pg MCHC 34.7 (31.0-35.0) g/dl RDW 12.4 (11.0-16.0) % Plt Count 213 (160-400) X10*3/uL MPV 10.2 (9.4-12.3) fL Immature Gran % (Auto) 1.0 H (0.0-0.4) % Neut % (Auto) 62.7 (45-73) % Lymph % (Auto) 23.8 (20-40) % [facility] % (Auto) 8.7 (2-11) % Eos % (Auto) 3.1 (0-4) % Baso % (Auto) 0.7 (0-2) % Lymph # (Auto) 1.9 (1.2-4.9) X10*3/uL [facility] [place] [facility] # (Auto) 0.7 (0.1-1.2) X10*3/uL Eos # (Auto) 0.3 (0.0-0.4) X10*3/uL Baso # (Auto) 0.1 (0.0-0.2) X10*3/uL Abs Immat Gran (auto) 0.08 H (0.00-0.03) X10*3/uL Absolute Neuts (auto) 5.0 (2.0-8.3) x10*3/uL Absolute Nucleated RBC 0.000 (0.0-0.012) X10*3/uL Nucleated RBC % (auto) 0.0 (0.0-0.2) /100WBC PT 11.4 (11.1-13.3) SEC INR 0.9 (0.9-1.1) Troponin I High Sens 4.5 (<3.5-17.0) ng/L Independent Interpretation I performed an independent interpretation of an: CT Scan ( head:Acute intraparenchymal hemorrhage within the lateral left frontoparietal lobe measuring up to 3.1 cm with small adjacent subarachnoid blood products. No midline shift or downward herniation. ) Radiology Impression Discussion of test interpretation with radiology: I have reviewed the radiologist's reading. Chronic Conditions Patient?s care impacted by: Diabetes, Hypertension and Other ( Parkinson's) Critical Care Time Critical Care Time Critical Care Time: Yes Total Critical Care Time: 45 Attestation: I spent 45 minutes providing critical care service to the patient, this including time spent at the bedside to evaluate the patient, reassess the patient, monitoring vital signs, review labs, and radiographic studies, counseling the patient/family, discussing the case with consultants, disposition the patient. Discharge Plan Discharge Clinical Impression: Aphasia, Intracranial bleed Patient Disposition: Xfer [facility] Transfer Details: [facility] Prescriptions: No Action atorvastatin 20 mg tablet 20 mg PO DAILY Qty: 90 0RF lisinopril 10 mg tablet 10 mg PO DAILY Qty: 90 3RF metformin 500 mg tablet 1,000 mg PO BID Qty: 360 1RF carbidopa-levodopa 25-100 mg tablet 1 tab PO QID Qty: 180 0RF Rx Instructions: 2 tab in 7am, 1 tab @ 11am, 2 tab at 3pm and 1tab @7pm atenolol 25 mg tablet 25 mg PO DAILY aspirin [Adult Low Dose Aspirin] 81 mg tablet,delayed release (DR/EC) 81 mg PO DAILY PRN (Reason: Headache)
[2023-04-09 16:55] VITALS: BP 142/93; PULSE 82; RESP 18; TEMP 36.7; O2SAT 98; BMI 23.3
[2023-04-09 18:09] LABS: MANUAL DIFF FLAG NO
[2023-04-09 18:22] LABS: INTERNATIONAL NORM RATIO 0.9 (0.9-1.1); Prothrombin Time 11.4 SEC (11.1-13.3)
[2023-04-09 18:34] LABS: Basophils Absolute Auto 0.1 X10*3/uL (0.0-0.2); Basophils Percent Auto 0.7 % (0-2); Eosinophils Absolute Auto 0.3 X10*3/uL (0.0-0.4); Eosinophils Percent Auto 3.1 % (0-4); Hematocrit 42.6 % (37.0-47.0); Hemoglobin 14.8 g/dl (12.0-16.0); Imm Gran Abs Auto 0.08 X10*3/uL (0.00-0.03); Lymphocytes Absolute Auto 1.9 X10*3/uL (1.2-4.9); Lymphocytes Percent Auto 23.8 % (20-40); Mean Corpuscular HGB Conc 34.7 g/dl (31.0-35.0); Mean Platelet Volume 10.2 fL (9.4-12.3); Monocytes Absolute Auto 0.7 X10*3/uL (0.1-1.2); Monocytes Percent Auto 8.7 % (2-11); Neutrophils Percent Auto 62.7 % (45-73); Platelet Count 213 X10*3/uL (160-400); Red Blood Count 4.63 X10*6/uL (4.20-5.50); Red Cell Distribution Width 12.4 % (11.0-16.0)
[2023-04-09 18:35] LABS: Troponin-I High Sensitivity 4.5 ng/L (<3.5-17.0)
[2023-04-09 18:49] LABS: Influenza A PCR NEGATIVE (Negative); Influenza B PCR NEGATIVE (Negative); Resp Syncy Virus RNA Qual PCR NEGATIVE (Negative); SARS COV2 PCR INHOUSE NEGATIVE (Negative)
--- NOTE | 2023-04-09 19:07 | PC.NURSE ---
pt family sts pt has changes in speech. GCS 12. CT scan complete. provider in room to communicate family with results. pt changed into hospital attire. 22G IV placed to [facility]. labs drawn and sent. pt had large bowel movement, pt cleaned up. purewick put in place. awaiting urine sample. blankets given. pt has and sister at bedside. currently resting quietly. pt able to follow commands, just having tough time getting words out. pt plan to be transported out to [facility]. plan of care ongoing. report given to GARFIELD Shi.
--- NOTE | 2023-04-09 20:06 | MHC.EDTECH ---
1817- Dr Minor requested [facility] for possible transfer due to intracranial bleed. 1819- Call placed to [facility] and transferred to Dr Minor. 1821- [facility] called back requesting CT images be uploaded to [facility]. CT was notified. 1839- [facility] called back, transferred to Dr Minor. Per Dr Minor, pt accepted by Neuro (awaiting Hospitalist acceptance and bed assignment) 1899- [facility] called back, transferred to Dr Minor. Per Dr Minor, pt accepted by Hospitalist and awaiting bed assignment. 1939- Call placed to [facility] to request update on possible bed assignment. [facility] - D52 - Room 17B 1941- [facility] called to book transport. 1944- [facility] called back and informed due to pt insurance, transport was outsourced to [facility]. ETA: [id number]. RN made aware.
--- NOTE | 2023-04-09 21:23 | PC.NURSE ---
attempted to call [facility] for report, they requested this magazine writer call back in 15min.
[2023-04-09 22:00] VITALS: BP 142/86; PULSE 62; RESP 18; O2SAT 98
--- NOTE | 2023-04-09 22:21 | PC.NURSE ---
while giving report to nurse @ [facility], ?Nhi - call was disconnected. unable to get back in touch w/ unit at this time. will attempt to try before patient is transferred.
== END 2023-04-09 23:00 | disposition short-term general hospital (02) ==
PROVIDERS: Registered Nurse Emergency; Emergency Provider Emergency Medicine; PCP Internal Medicine
DX: I62.9 Nontraumatic intracranial hemorrhage, unspecified (principal); R47.01 Aphasia; R29.702 NIHSS score 2; G20.A1 Parkinson's disease without dyskinesia, without mention of fluctuations; I10 Essential (primary) hypertension; E11.9 Type 2 diabetes mellitus without complications; Z20.822 Contact with and (suspected) exposure to COVID-19; Z20.828 Contact with and (suspected) exposure to other viral communicable diseases
CPT/HCPCS: 0241U; 70450; 84484; 85025; 85610; 99284; 99285